=== PATIENT | male | born 1945 | race Caucasian/White ===

== ENCOUNTER 2018-02-15 13:47 | Emergency (ER) | payer MEDICARE ==
[~2018-02-15] VITALS: Ht 180.3 cm; Wt 118.2 kg
[~2018-02-15 13:47] MED LIST: BAYER CHEWABLE81 MG PO; CALAN SR240 MG PO; FLUTICASONE PRO16 GM NASAL; GLUCOPHAGE1000 MG PO; GLUCOSAMINE & C1 CAP PO; K-DUR20 MEQ PO; LIPITOR40 MG PO; PRINZIDE 20-251 TA1 PO
[2018-02-15 13:53] VITALS: Ht 180.3 cm; Wt 118.2 kg
[2018-02-15 14:38] LABS: BASOPHILS 0.7 % (0-2); EOSINOPHILS 1.2 % (0-7); HEMATOCRIT 41.9 % (42.0-54.0); HEMOGLOBIN 14.6 g/dL (13.5-17.5); IMMATURE GRANULOCYTES 0.2 % (0-5); LYMPHOCYTES 18.5 % (15-50); MCHC 34.8 g/dL (31.0-37.0); MCV 94.8 fL (80.0-100.0); MONOCYTES 9.1 % (2-11); NEUTROPHILS 70.3 % (40-80); PLATELET COUNT 165 10x3/uL (130-400); RBC 4.42 10x6/uL (4.20-6.10); RDW 12.8 % (11.5-14.5); WBC 5.9 10x3/uL (4.8-10.8)
[2018-02-15 14:46] LABS: APTT 28.6 SECONDS (22.8-39.4); INR 1.11 (0.85-1.17); PROTIME 13.9 SECONDS (11.6-15.0)
[2018-02-15 15:08] LABS: ALKALINE PHOSPHATASE 133 U/L (46-116); ALT (SGPT) 42 U/L (10-68); BILIRUBIN - TOTAL 1.19 mg/dL (0.2-1.3); CALC OSMOLALITY 280 mosm/kg (275-300); CALCIUM 9.3 mg/dL (8.5-10.1); CARBON DIOXIDE 27.3 mmol/L (21.0-32.0); CHLORIDE - SERUM 103 mmol/L (98-107); GLUCOSE 119 mg/dL (74-106); POTASSIUM - SERUM 3.9 mmol/L (3.5-5.1); PROTEIN - SERUM 7.3 g/dL (6.4-8.2); SODIUM 139 mmol/L (136-145); UREA NITROGEN 19 mg/dL (7-18); eGFR NON AFRICAN AMERICAN 78 mL/min (90-120)
[2018-02-15 15:30] VITALS: BP 155/88
== END 2018-02-15 15:31 | disposition home or self-care (01) ==
LOC: D.ER 13:47
PROVIDERS: Family Medicine
DX: S00.93XA Contusion of unspecified part of head, initial encounter (principal); W18.30XA Fall on same level, unspecified, initial encounter; Y93.89 Activity, other specified; Y92.481 Parking lot as the place of occurrence of the external cause; I10 Essential (primary) hypertension; E11.9 Type 2 diabetes mellitus without complications

== ENCOUNTER 2018-09-11 20:10 | Emergency (ER) | payer MEDICARE, OTHER ==
[2018-09-11 20:11] VITALS: BMI 36.3
[2018-09-11 20:53] LABS: BASOPHILS 0.6 % (0-2); EOSINOPHILS 2.2 % (0-7); HEMATOCRIT 39.3 % (42.0-54.0); HEMOGLOBIN 13.6 g/dL (13.5-17.5); IMMATURE GRANULOCYTES 0.2 % (0-5); LYMPHOCYTES 23.5 % (15-50); MCH 32.2 pg (26.0-34.0); MCHC 34.6 g/dL (31.0-37.0); MCV 93.1 fL (80.0-100.0); MONOCYTES 9.3 % (2-11); NEUTROPHILS 64.2 % (40-80); PLATELET COUNT 147 10x3/uL (130-400); RBC 4.22 10x6/uL (4.20-6.10); RDW 12.6 % (11.5-14.5); WBC 5.1 10x3/uL (4.8-10.8)
[2018-09-11 20:54] LABS: ALBUMIN 3.8 g/dL (3.4-5.0); ALKALINE PHOSPHATASE 88 U/L (46-116); ALT (SGPT) 43 U/L (10-68); BILIRUBIN - TOTAL 0.81 mg/dL (0.2-1.3); CALC OSMOLALITY 282 mosm/kg (275-300); CALCIUM 8.7 mg/dL (8.5-10.1); CARBON DIOXIDE 23.7 mmol/L (21.0-32.0); CHLORIDE - SERUM 102 mmol/L (98-107); CREATININE - SERUM 0.8 mg/dL (0.6-1.3); GLUCOSE 142 mg/dL (74-106); POTASSIUM - SERUM 3.7 mmol/L (3.5-5.1); PROTEIN - SERUM 6.8 g/dL (6.4-8.2); SODIUM 140 mmol/L (136-145); UREA NITROGEN 18 mg/dL (7-18); eGFR NON AFRICAN AMERICAN > 90 mL/min (90-120)
[2018-09-11 22:21] VITALS: BP 136/80
== END 2018-09-11 22:24 | disposition home or self-care (01) ==
LOC: D.ER 20:10
PROVIDERS: Family Medicine
DX: S01.01XA Laceration without foreign body of scalp, initial encounter (principal); W10.9XXA Fall (on) (from) unspecified stairs and steps, initial encounter; Y93.89 Activity, other specified; Y92.019 Unspecified place in single-family (private) house as the place of occurrence of the external cause

== ENCOUNTER 2018-10-07 20:32 | Inpatient (IN) | payer MEDICARE, OTHER ==
[~2018-10-07] VITALS: Ht 180.3 cm; Wt 126.6 kg
--- NOTE | 2018-10-07 21:12 | NUR ---
NURSE CLEANSED WOUND ON FORARM WITH MICRO CLEANSE AND CLEANED WOUND ON HEAD WITH PEROXIDE AND MICRO CLEANSE.
[2018-10-07 22:37] VITALS: BP 126/76
[2018-10-07 23:30] VITALS: BP 117/68
[2018-10-07 23:41] LABS: BASOPHILS 0.3 % (0-2); EOSINOPHILS 0.3 % (0-7); HEMATOCRIT 36.2 % (42.0-54.0); HEMOGLOBIN 12.5 g/dL (13.5-17.5); IMMATURE GRANULOCYTES 0.3 % (0-5); LYMPHOCYTES 6.8 % (15-50); MCH 32.5 pg (26.0-34.0); MCHC 34.5 g/dL (31.0-37.0); MEAN PLATELET VOLUME 10.2 fL (7.4-10.4); MONOCYTES 6.3 % (2-11); PLATELET COUNT 148 10x3/uL (130-400); RBC 3.85 10x6/uL (4.20-6.10); RDW 12.9 % (11.5-14.5); WBC 11.7 10x3/uL (4.8-10.8)
[2018-10-07 23:52] LABS: INR 1.18 (0.85-1.17); PROTIME 14.5 SECONDS (11.6-15.0)
[2018-10-07 23:56] LABS: ALBUMIN 3.9 g/dL (3.4-5.0); ALKALINE PHOSPHATASE 98 U/L (46-116); ALT (SGPT) 37 U/L (10-68); BILIRUBIN - TOTAL 1.02 mg/dL (0.2-1.3); CALC OSMOLALITY 281 mosm/kg (275-300); CALCIUM 8.6 mg/dL (8.5-10.1); CARBON DIOXIDE 18.6 mmol/L (21.0-32.0); CHLORIDE - SERUM 103 mmol/L (98-107); CREATININE - SERUM 0.9 mg/dL (0.6-1.3); GLUCOSE 143 mg/dL (74-106); MAGNESIUM - SERUM 1.6 mg/dL (1.8-2.4); POTASSIUM - SERUM 3.8 mmol/L (3.5-5.1); PROTEIN - SERUM 6.7 g/dL (6.4-8.2); SODIUM 139 mmol/L (136-145); UREA NITROGEN 18 mg/dL (7-18); eGFR NON AFRICAN AMERICAN 88 mL/min (90-120)
[2018-10-08] VITALS (35 sets, daily range): BP systolic 90–204; BP diastolic 63–130
--- NOTE | 2018-10-08 00:25 | NUR ---
QASIM METZGER () [phone] PALMA (SON) [phone]
--- NOTE | 2018-10-08 07:35 | NUR ---
PATIENT IV THERAPY REMOVED VIA PATIENT. TIP INTACT. REDRESSED. SLING REAPPLIED. SWEATING PROFUSELY WITH A SMALL BM. BED LINENS CHANGED. CL IN REACH POSSE ALARM ON
--- NOTE | 2018-10-08 07:50 | NUR ---
PATIENT REDRESSED. SLING REAPPLIED. PILLOW PUT BEHIND RIGHT SHOULDER. DR MEDINA PAGED. PATIENT TRYING TO PULL HIMSELF OUT OF BED WITH RAILS ON RIGHT SIDE OF BED. CL IN REACH. POSSE ALARM ON
[2018-10-08] MEDS ORDERED: ALEVE220 MG PO (09:50)
--- NOTE | 2018-10-08 13:50 | NUR ---
SPOKE WITH DR SONG. GO AHEAD AN INTUBATE DUE TO PT BEING NON COMPLIENT AND NEEDING A HEAD CT. DR BLANCAS CONSULTED. DR SONG STATED THAT IF THE PT HAS A ANURYSM, TO TRANSFER THE PT TO [facility].
--- NOTE | 2018-10-08 14:05 | NUR ---
PT TO UNIT FROM CTA. HR 95; 97% ON RA; 192/97; 100.1 TEMP.
--- NOTE | 2018-10-08 14:16 | NUR ---
DR SONG PAGESanket. UPDATED HIM ON THE PTS CONDITION. PT BEING UNCOOPERATIVE AND REACHING FOR LINES AND PULLING. ASKED DR SONG SINCE THE PT HAS ALREADY BEEN TO CT OF HIS HEAD AND IF HE STILL WANTS THE PT INTUBATED AND HE DR SONG STATED YES. DR YONNY PEREZ.
[2018-10-08 15:17] LABS: BASOPHILS 0.1 % (0-2); EOSINOPHILS 0 % (0-7); IMMATURE GRANULOCYTES 0.2 % (0-5); LYMPHOCYTES 3.6 % (15-50); MCH 32.4 pg (26.0-34.0); MCHC 35.3 g/dL (31.0-37.0); MEAN PLATELET VOLUME 10.2 fL (7.4-10.4); MONOCYTES 9.2 % (2-11); NEUTROPHILS 86.9 % (40-80); PLATELET COUNT 147 10x3/uL (130-400); WBC 9.3 10x3/uL (4.8-10.8)
--- NOTE | 2018-10-08 15:20 | NUR ---
PT INTUBATED BY DR BLANCAS. 7.5 TUBE USED; 24CM AT THE LIP; SETTINGS PER RT. OGT DROPPED. LANG CATH PLACED. PT IN SOFT WRIST RESTRAINTS. HR 101; 98%; 159/88.
[2018-10-08 15:40] LABS: ALBUMIN 3.8 g/dL (3.4-5.0); ALKALINE PHOSPHATASE 94 U/L (46-116); ALT (SGPT) 37 U/L (10-68); BILIRUBIN - TOTAL 1.79 mg/dL (0.2-1.3); CALCIUM 8.5 mg/dL (8.5-10.1); CARBON DIOXIDE 22.3 mmol/L (21.0-32.0); CHLORIDE - SERUM 104 mmol/L (98-107); POTASSIUM - SERUM 3.8 mmol/L (3.5-5.1); PROTEIN - SERUM 6.5 g/dL (6.4-8.2); SODIUM 139 mmol/L (136-145); UREA NITROGEN 20 mg/dL (7-18)
[2018-10-08 15:41] LABS: CALC OSMOLALITY 288 mosm/kg (275-300); CREATININE - SERUM 0.3 mg/dL (0.6-1.3); GLUCOSE 238 mg/dL (74-106); eGFR NON AFRICAN AMERICAN > 90 mL/min (90-120)
[2018-10-08 15:45] LABS: MCV 91.9 fL (80.0-100.0)
--- NOTE | 2018-10-08 15:49 | NUR ---
DURING INTUBATION, DR BLANCAS WANTED 4 VERSED, 200 FENTANYL AND [address] BLANCAS, 4 VERSED AND 150MCG OF FENTANYL GIVEN. NO SUCCINYCHOLINE GIVEN.
--- NOTE | 2018-10-08 16:30 | NUR ---
LASIX GIVEN THEN MANNITOL PER DR SONG'S ORDERS. NEW IV STARTED IN RIGHT HAND. 20 GAUGE. GOOD BLOOD RETURN. PT SEDATED. VSS. WILL CONTINUE TO MONITOR.
--- NOTE | 2018-10-08 17:40 | NUR ---
1ST DOSE OF MANNITOL IN. ROCEPHIN STARTED. WILL CONTINUE TO MONITOR.
--- NOTE | 2018-10-08 19:00 | NUR ---
REPORT RECEIVED, CARE ASSUMED. PT IS IN BED INTUBATED WITH SEDATION GOING. INITIAL ASSESSMENT COMPLETED, SEE FLOWSHEET FOR DETAILS. PT IS NOTED TO BE COUGHING/GAGGING ON TUBES AND MOVING AROUND IN THE BED. PROPOFOL INCREASED ACCORDING TO TITRATION ORDERS, SEE FLOWSHEET FOR DETAILS. PT WAS REPOSITIONED FOR COMFORT. ORAL CARE PERFORMED. NO SIGNS OF ACUTE DISTRESS NOTED AT THIS TIME. WILL CONTINUE TO MONITOR.
--- NOTE | 2018-10-08 21:00 | NUR ---
PT IS IN BED INTUBATED AND SEDATED. PT REPOSITIONED FOR COMFORT. ORAL CARE PERFORMED. FAMILY/FRIENDS AT BEDSIDE, QUESTIONS ANSWERED. NO SIGNS OF ACUTE DISTRESS. WILL CONTINUE TO MONITOR.
--- NOTE | 2018-10-08 23:00 | NUR ---
REASSESSMENT COMPLETED, SEE FLOWSHEET FOR DETAILS. PT IS IN BED INTUBATED AND SEDATED. PT REPOSITIONED FOR COMFORT. ORAL CARE PERFORMED. NO SIGNS OF ACUTE DISTRESS NOTED. WILL CONTINUE TO MONITOR.
[2018-10-09] VITALS (24 sets, daily range): BP systolic 104–166; BP diastolic 68–98; BMI 37.8
--- NOTE | 2018-10-09 01:00 | NUR ---
PT IS IN BED INTUBATED AND SEDATED. PT REPOSITIONED FOR COMFORT. ORAL CARE PERFORMED. NO ACUTE CHANGES NOTED AT THIS TIME. NO SIGNS OF ACUTE DISTRESS. WILL CONTINUE TO MONITOR.
--- NOTE | 2018-10-09 03:00 | NUR ---
REASSESSMENT COMPLETED, SEE FLOWSHEET FOR DETAILS. PT IS IN BED INTUBATED AND SEDATED. PT REPOSITIONED FOR COMFORT. ORAL CARE PERFORMED. NO SIGNS OF ACUTE DISTRESS NOTED AT THIS TIME. WILL CONTINUE TO MONITOR.
--- NOTE | 2018-10-09 05:00 | NUR ---
PT IS IN BED INTUBATED AND SEDATED. PT REPOSITIONED FOR COMFORT. ORAL CARE PERFORMED. MORNING LABS REVIEWED, ELECTROLYTE PROTOCOL FOLLOWED. NO SIGNS OF ACUTE DISTRESS. WILL CONTINUE TO MONITOR.
[2018-10-09 05:07] LABS: BASOPHILS 0.2 % (0-2); EOSINOPHILS 0 % (0-7); HEMATOCRIT 32.5 % (42.0-54.0); HEMOGLOBIN 11.7 g/dL (13.5-17.5); IMMATURE GRANULOCYTES 0.1 % (0-5); LYMPHOCYTES 8.3 % (15-50); MCH 34.5 pg (26.0-34.0); MCV 95.9 fL (80.0-100.0); MEAN PLATELET VOLUME 10.8 fL (7.4-10.4); MONOCYTES 10.6 % (2-11); NEUTROPHILS 80.8 % (40-80); PLATELET COUNT 143 10x3/uL (130-400); RBC 3.39 10x6/uL (4.20-6.10); RDW 13.5 % (11.5-14.5); WBC 8.8 10x3/uL (4.8-10.8)
[2018-10-09 05:10] LABS: APTT 26.8 SECONDS (22.8-39.4); INR 1.2 (0.85-1.17); PROTIME 14.7 SECONDS (11.6-15.0)
[2018-10-09 05:38] LABS: ALBUMIN 3.6 g/dL (3.4-5.0); BILIRUBIN - TOTAL 1.69 mg/dL (0.2-1.3); CALCIUM 8.2 mg/dL (8.5-10.1); PHOSPHOROUS 2.9 mg/dL (2.5-4.9); PROTEIN - SERUM 6.8 g/dL (6.4-8.2)
[2018-10-09 05:43] LABS: ANION GAP 11.8 mmol/L (8-16); CARBON DIOXIDE 30.2 mmol/L (21.0-32.0); CREATININE - SERUM 1.1 mg/dL (0.6-1.3); MAGNESIUM - SERUM 2.1 mg/dL (1.8-2.4)
--- NOTE | 2018-10-09 07:15 | NUR ---
REPORT RECEIVED. PT ON VENT. SETTINGS PER RT. 7.5 AND 24CM AT THE LIP. PT HAS IV IN LEFT FOREARM AND RIGHT HAND. NEW PROPOFOL AND TUBING HUNG. 2ND BAG OF POTASSIUM REPLACEMENT THERAPY HUNG. PT HAS LANG. HE IS IN SOFT WRIST RESTRAINTS BILATERALLY. RT IN WITH PT. SUCTIONED AND REPOSITIONED. HEAD TO TOE ASSESSMENT DONE. VSS. WILL CONTINUE TO MONITOR.
--- NOTE | 2018-10-09 09:34 | NUR ---
DR BLANCAS CALLED WANTING TO KNOW IF DR SONG WANTED A 2ND CTA OF THE HEAD AND WHETHER THE PT WOULD BE TRANSFERRED OUT OR NOT. SPOKE WITH [employer] IN SURGERY WITH DR SONG. DR SONG STATED TO GO ON WITH 2ND CTA AND TO CLARIFY WITH DR BLANCAS.
--- NOTE | 2018-10-09 09:42 | NUR ---
NO ANEURYSM PER CTA YESTERDAY (10/08). CLARIFIED WITH BOTH DR BLANCAS AND DR SONG. PT IS TO STAY HERE AT [facility] IN ICU. WILL CONTINUE TO MONITOR. PICC LINE ORDERED. WAS TOLD VASCULAR ACCESS NURSE IS OUT UNTIL NEXT Friday10/13/18.
--- NOTE | 2018-10-09 10:28 | NUR ---
HAVE CALLED PHARMACY ASKING ABOUT BANANA BAG. THEY STATED THAT IT WAS ON A DIFFERENT FLOOR AND THAT THEY WOULD BRING IT WHEN THEY HAD A CHANCE.
--- NOTE | 2018-10-09 11:45 | NUR ---
PROPOFOL DECREASED PER DR BLANCAS'S REQUEST. PUPILS 2MM. SLUGGISH.
--- NOTE | 2018-10-09 12:30 | NUR ---
SEDATION VACATION STARTED. VSS.
[2018-10-09 12:35] LABS: BASOPHILS 0.1 % (0-2); EOSINOPHILS 0.1 % (0-7); HEMATOCRIT 36.1 % (42.0-54.0); HEMOGLOBIN 12.5 g/dL (13.5-17.5); IMMATURE GRANULOCYTES 0.2 % (0-5); LYMPHOCYTES 4.5 % (15-50); MCH 32.7 pg (26.0-34.0); MCHC 34.6 g/dL (31.0-37.0); MCV 94.5 fL (80.0-100.0); MEAN PLATELET VOLUME 10.5 fL (7.4-10.4); MONOCYTES 9.2 % (2-11); NEUTROPHILS 85.9 % (40-80); PLATELET COUNT 135 10x3/uL (130-400); RBC 3.82 10x6/uL (4.20-6.10); RDW 13.4 % (11.5-14.5); WBC 10.1 10x3/uL (4.8-10.8)
--- NOTE | 2018-10-09 13:00 | NUR ---
DR SONG ROUNDED ON PT. WAS ABLE TO GET RESPONSE OUT OF PT. NO NEW ORDERS AT THIS TIME. VSS. WILL CONTINUE TO MONITOR.
--- NOTE | 2018-10-09 14:58 | NUR ---
NEW 20 GAUGE IV STARTED TO LEFT FOREARM. POTASSIUM RECHECKED AND 3.4. POTASSIUM REPLACEMENT 10 MEQ X4 STARTED. PT WAS AGITATED AND TRYING TO FIGHT ME STARTING A NEW IV. STARTED PROPOFOL BACK UP. PT WOULDN'T FOLLOW COMMANDS BUT DID TRY TO FIGHT HIS RESTRAINTS. EYES OPENED WHEN STARTING IV. WILL CONTINUE TO MONITOR.
--- NOTE | 2018-10-09 15:04 | NUR ---
TEMP 99.8 ORALLY. WILL CONTINUE TO MONITOR.
--- NOTE | 2018-10-09 16:30 | NUR ---
IV IN RIGHT HAND INFILTRATED. REMOVED. VSS. POTASSIUM STILL BEING REPLACED. BANANA BAG INFUSING. MANNITOL INFUSING. PROPOFOL AT 30MCG INFUSING. WILL CONTINUE TO MONITOR.
--- NOTE | 2018-10-09 17:30 | NUR ---
TUBE FEEDING INITIATED. 20ML/HR PULMOCARE WITH 20ML/HR FLUSH.
--- NOTE | 2018-10-09 17:57 | MORECARE ---
CASE MANAGEMENT DISCHARGE SUMMARY PATIENT: DAYTON METZGER UNIT: [id number] ADM DATE: 10/08/18 AGE: 73 : [birth year] SEX: M ROOM/BED: D.2312 AUTHOR: SHAKEEL SAUCEDA PHYSICIAN: REFERRING PHYSICIAN: FRANCIE MDEINA MD DATE OF SERVICE: 10/09/18 Discharge Plan Patient Name: DAYTON METZGER [facility] [facility] 1945 Planned Disposition: Anticipated Discharge Date: Discharge Date: Expected LOS: Initial Reviewer: [email or web address] Initial Review Date: 10/08/2018 Generated: 10/09/18 6:57 pm DCP- Discharge Planning Updated by [email or web address]: Ladi Harden on 10/09/18 4:[address] CM attempted to visit with patient regarding discharge planning/ needs. Patient currently on vent no family available. CM will continue to follow and assist as needed with discharge planning / needs Patient Name: DAYTON METZGER Page [id number] at 1757 All edits/amendments must be made on the electronic document DICTATION DATE: 10/09/181755 REHABILITATION TEACHER: LEAH 10/09/181755 RPT#: [id number] DC DATE: STATUS: ADM IN [facility] [address] [place] [address] END OF REPORT
[2018-10-10] VITALS (23 sets, daily range): BP systolic 121–172; BP diastolic 74–118
--- NOTE | 2018-10-10 02:54 | NUR ---
OG TUBE DISCONNECTED FROM PATIENT AT THIS TIME
[2018-10-10 03:52] LABS: ALBUMIN 3.7 g/dL (3.4-5.0); ANION GAP 12.4 mmol/L (8-16); BILIRUBIN - TOTAL 1.73 mg/dL (0.2-1.3); CARBON DIOXIDE 30.7 mmol/L (21.0-32.0); CREATININE - SERUM 1.1 mg/dL (0.6-1.3); POTASSIUM - SERUM 3.1 mmol/L (3.5-5.1); PROTEIN - SERUM 7.3 g/dL (6.4-8.2)
[2018-10-10 03:59] LABS: MAGNESIUM - SERUM 2.7 mg/dL (1.8-2.4); PHOSPHOROUS 4.4 mg/dL (2.5-4.9)
--- NOTE | 2018-10-10 07:00 | NUR ---
REC'ED REPORT FROM OUT GOING RN - OUT GOING RN PLACED OG TUBE - AUSCULTATED CORRECT PLACEMENT - CPOC
--- NOTE | 2018-10-10 07:17 | HP ---
PATIENT: DAYTON METZGER MEDICAL RECORD: [id number] ACCOUNT: [id number] LOCATION:[facility]2312 : [birth year] ADMISSION DATE: 10/08/18 PCP: DAYTON BRANDT MD HISTORY AND PHYSICAL EXAMINATION REASON FOR ADMISSION: Fall with intoxication. HISTORY OF PRESENT ILLNESS: The patient is a 73-year-old male, type 2 diabetic, who apparently has a history of alcohol excess. His states that he tripped and fell down 4 steps, hitting his head on the freezer. He was brought by EMS to the ED. His states that he is on no blood thinners, just aspirin. He has been confused since the fall but was inebriated with the alcohol level over 50. In the ED, he was cooperative but somnolent, denied pain. PAST MEDICAL HISTORY: AODM, exogenous obesity, hyperlipidemia, essential hypertension, osteoarthritis, rosacea, psoriasis, chronic back pain, cervical arthritis, spinal stenosis, history of hematuria with negative workup in 2014 at [facility]. Depression. PAST SURGICAL HISTORY: Tonsillectomy, vasectomy, ganglion cyst removed from his right wrist, quadriceps tear repair in 2001, left patellar tendon rupture with repair in 1997, lumbar laminectomy in 2009, lumbar fusion in 2013. IMMUNIZATIONS: He has had Prevnar, Pneumovax, and flu vaccine seasonally. FAMILY HISTORY: Father is , had arthritis, CAD, dementia. Mother had diabetes and hypertension. CURRENT MEDICATIONS: Potassium 20 mEq a day, Flonase nasal spray 2 sprays each nostril daily, verapamil ER 240 a day, metformin 1000 mg b.i.d., paroxetine 10 mg b.i.d. ALLERGIES: None known. REVIEW OF SYSTEMS: Currently is unobtainable due to the patient's intoxication. There was no reported seizure pre or post incident by family members. PHYSICAL EXAMINATION: GENERAL: The patient opens his eyes, does not follow commands currently. HEENT: Normocephalic. Pupils are equal, reactive but somewhat pinpoint. He has some bruising over his right orbit. Oropharynx dry mucous membranes. NECK: Supple. CHEST: Clear without wheeze or rales. HEART: Regular rate and rhythm. He has bruising over his right distal clavicle and anterior shoulder. Does not appear painful to touch. ABDOMEN: Obese, soft, nontender. No organomegaly or guarding. GENITOURINARY: Unremarkable. EXTREMITIES: He has some bruising over his right knee. Healed surgical scar over his left knee and he appears to have had a left total knee replacement in the past. NEUROLOGICAL: The patient will open his eyes to commands but will not follow commands, otherwise. He is noncommunicative currently. Cranial nerves II-XII are grossly intact. Moving all extremities without difficulty. Not able to HISTORY AND PHYSICAL [id number] DAYTON METZGER stand at this time. LABORATORY DATA: His white count is 11,700, hemoglobin of 12.5, hematocrit of 36.2 with normal diff. BMP is normal except for anion gap of 21.2, low carbon dioxide of 18.6, glucose of 143, magnesium low at 1.6. Ammonia is 19. Urine drug screen shows alcohol level of 52.[address] scan of his brain is currently pending as the patient was uncooperative. Head CT, a month ago showing left parietal scalp hematoma, air-fluid level in the right maxillary sinus. ASSESSMENT: 1. Intoxication with fall and head injury. 2. Right clavicular fracture distally. 3. Adult-onset diabetes mellitus. 4. Hypertension. 5. Depression. 6. Hyperlipidemia. 7. Psoriasis. PLAN: With the patient's altered mental status, he will have neuro checks, placed on banana bag due to alcohol excess, obtain CT scan once the patient is more cooperative. Neurology consult if indicated. Orthopedics has been consulted concerning his distal right clavicular fracture. TRANSINT:[id number] Voice Confirmation ID: [id number] DOCUMENT ID: [id number] FRANCIE MEDINA MD at 0717 CC: [id number] DICTATION DATE: 10/08/18 0605 LOG TURNER: 10/08/18 0628 ADM IN [facility] [address] [place] [address]
--- NOTE | 2018-10-10 07:30 | NUR ---
DR. MEDINA AT BEDSIDE - ORDERS REC'ED FOR TUBE FEEDING - SEE MD ORDERS - CPOC
--- NOTE | 2018-10-10 08:00 | NUR ---
ASSESSMENT COMPLETE - VSS - MEDICATIONS GIVEN - SEE MAR - CPOC
--- NOTE | 2018-10-10 09:00 | NUR ---
DR. MCQUEEN AT BEDSIDE FOR ASSESSMENT - REVIEWED PLAN OF CARE WITH MD Cailin SANDOVAL - CPOC
--- NOTE | 2018-10-10 10:00 | NUR ---
SPOUSE AT [facility] - PASSWORD: "[email or web address]" - ANSWERED ALL QUESITONS TO SPOUSE'S SATISFACTION - CPOC
--- NOTE | 2018-10-10 10:34 | NUR ---
MEDICATIONS GIVEN - SEE MAR
--- NOTE | 2018-10-10 10:43 | NUR ---
FAMILY AT BEDSIDE - ANSWERED ALL QUESITONS TO FAMILY'S SATISFACTION - CPOC
--- NOTE | 2018-10-10 11:11 | NUR ---
Nutrition Consult: started TF of Glucerna 1.0; consult received for goal rate. Spoke with nursing; pt is currently on Diprivan @ 15.1 ml/hr providing 399 kcal/d. Will put order in to increase TF 10 ml every 6-8 hours as tolerated to goal rate of 65 ml/hr with H2O flushes 10 ml/hr. Goal rate will provide 1560 kcal (other kcal source Diprivan), 64 g protein and 1313 ml free H2O per day. Goal rate is adequate to meet est nutritional needs. RD following.
--- NOTE | 2018-10-10 16:00 | NUR ---
SPOUSE AT BEDSIDE - ANSWERED ALL QUESITONS TO FAMILY SATISIFACTION - ORAL CARE DONE - CPOC
--- NOTE | 2018-10-10 16:41 | NUR ---
ICE PACKS PLACED ON PATIENT TO LOWER TEMP FROM 101.2 (ORAL) CPOC
--- NOTE | 2018-10-10 17:30 | NUR ---
TEMP RECHECKED DOWN TO 100.0 - REMOVED ICE PACKS - SPOUSE IN ROOM - CPOC
--- NOTE | 2018-10-10 17:44 | NUR ---
CLEAN CATCH URINE TAKEN TO LAB FOR TESTING
[2018-10-10 17:52] LABS: APPEARANCE CLEAR (CLEAR); BILIRUBIN NEGATIVE (NEGATIVE); COLOR YELLOW (YELLOW); GLUCOSE NEGATIVE (NEGATIVE); KETONE NEGATIVE (NEGATIVE); NITRITE NEGATIVE (NEGATIVE); PROTEIN NEGATIVE (NEGATIVE); SPECIFIC GRAVITY 1.015 (1.005-1.020); UROBILINOGEN NORMAL (NORMAL)
[2018-10-10 17:53] LABS: RED CELLS - URINE RARE /hpf (0-5); WHITE CELLS - URINE NSEEN /hpf (0-5)
[2018-10-10 17:56] LABS: UDS - AMPHET NEGATIVE QUAL (NEGATIVE); UDS - BARB NEGATIVE QUAL (NEGATIVE); UDS - BENZO NEGATIVE QUAL (NEGATIVE); UDS - COCAINE NEGATIVE QUAL (NEGATIVE); UDS - OPIATE NEGATIVE QUAL (NEGATIVE); UDS - PCP NEGATIVE QUAL (NEGATIVE); UDS - THC NEGATIVE QUAL (NEGATIVE)
--- NOTE | 2018-10-10 19:38 | NUR ---
RECEIVED PATIENT CARE - PATIENT RESTING COMFORTABLY ATTENTION FOCUSED ON TV, SHIFT ASSESSMENT COMPLETED SEE FLOW SHEET. VSS CPOC
--- NOTE | 2018-10-10 19:39 | NUR ---
RECEIVED CARE OF PATIENT, PATIENT INTUBATED NOT SEDATED, OPENS EYES TO SPEECH. SHIFT ASSESSMENT COMPLETED SEE FLOWSHEET, VSS CPOC
[2018-10-11] VITALS (25 sets, daily range): BP systolic 93–173; BP diastolic 58–107
[2018-10-11 03:55] LABS: BASOPHILS 0.2 % (0-2); EOSINOPHILS 0.5 % (0-7); HEMATOCRIT 39.6 % (42.0-54.0); HEMOGLOBIN 13.1 g/dL (13.5-17.5); IMMATURE GRANULOCYTES 0.2 % (0-5); LYMPHOCYTES 6.6 % (15-50); MCHC 33.1 g/dL (31.0-37.0); MEAN PLATELET VOLUME 10.4 fL (7.4-10.4); MONOCYTES 8.2 % (2-11); NEUTROPHILS 84.3 % (40-80); RDW 13.5 % (11.5-14.5)
[2018-10-11 03:57] LABS: MCV 96.6 fL (80.0-100.0); PLATELET COUNT 172 10x3/uL (130-400); WBC 12.8 10x3/uL (4.8-10.8)
[2018-10-11 04:04] LABS: CALCIUM 9.1 mg/dL (8.5-10.1); CARBON DIOXIDE 31.4 mmol/L (21.0-32.0); CREATININE - SERUM 1.1 mg/dL (0.6-1.3); MAGNESIUM - SERUM 3.3 mg/dL (1.8-2.4); POTASSIUM - SERUM 3.4 mmol/L (3.5-5.1)
--- NOTE | 2018-10-11 06:05 | NUR ---
CALLED DR SONG REGARDING SEDATION STATUS OF VENTILATED PATIENT
--- NOTE | 2018-10-11 06:06 | NUR ---
DR SONG SAID IT IS OK TO KEEP PATIENT ON MINIMAL SEDATION (PROPOFOL) FOR COMFORT AND VENTILATOR COMPLIANCE NEEDED, PAUSE Q1 HR TO ASSESS NEURO STATUS PER FLOWSHEET
--- NOTE | 2018-10-11 08:51 | NUR ---
WILL GIVE MVI WHEN ARRIVES FROM Rx
--- NOTE | 2018-10-11 10:07 | NUR ---
CRYSTAL IN MANITOL POKED A HOLE IN THE BAG, CONTACTED Rx, THEY ARE TO BRING A REPLACEMENT DOSE, WILL GIVE WHEN ARRIVES FROM Rx
--- NOTE | 2018-10-11 11:00 | NUR ---
NO CHANGES NOTED
--- NOTE | 2018-10-11 15:00 | NUR ---
NO CHANGES NOTED
--- NOTE | 2018-10-11 19:14 | NUR ---
RECEIVED PATIENT CARE - PATIENT HEART RATE SPIKE 126 SINUS TACH DURING REPORT, PRN TYLENOL ADMINISTERED SEE EMAR - TEMP 103.2 PACE CALLED AT THIS TIME
--- NOTE | 2018-10-11 19:25 | NUR ---
shift assessment completed see flowsheet, patient has temp and tachypnia - titrating diprovan as needed for ventilatior compliance see iv drip flowsheet , pt not responding to commands, opens eyes spontaneously does not follow commands. patient room air decreased and patient uncovered. medications administered - see flowsheet for full assessment
--- NOTE | 2018-10-11 19:38 | NUR ---
dr mancera called at this time and updated on patient status - new orders received - he also asked that i call dr ojeda to update also
--- NOTE | 2018-10-11 19:40 | NUR ---
DR. SONG SAID FENTANYL CAN BE RESTARTED ORDERED BY RICHAR IF NEEDED - RICHAR ORDER OF 25MCG/HR CONTINUOUS NO TITRATION
--- NOTE | 2018-10-11 19:51 | NUR ---
RICHAR UPDATED NEW ORDERS RECEIVED
--- NOTE | 2018-10-11 20:22 | NUR ---
FAMILY AT BEDSIDE - UPDATE GIVEN ALL QUESTIONS ANSWERED - HR 130 - RR STILL INCREASED LAB AT BEDSIDE FOR BC X2 CPOC
--- NOTE | 2018-10-11 20:40 | NUR ---
FENTANYL DRIP NOT STARTED DUE TO RSS AT THIS TIME, DIPROVAN BEING TITRATED TOLERATED - SINUS TACH NOTED - TEMP STILL ELEVATED WILL CONTINUE TO CLOSELY MONITOR CPOC
--- NOTE | 2018-10-11 21:45 | NUR ---
HS MEDICATIONS GIVEN AT THIS TIME, RESPIRATIONS RANGING FROM 35-38 - TEMP DECREASE NOW AT 102.7 WILL CONTINUE TO MONITOR CLOSELY
[2018-10-12] VITALS (24 sets, daily range): BP systolic 95–143; BP diastolic 55–92
--- NOTE | 2018-10-12 05:45 | NUR ---
CHG BATH AND FULL LINEN CHANGED COMPLETED AT THIS TIME INCLUDING LANG CARE. PATIENT DID NOT TOLERATE WELL
--- NOTE | 2018-10-12 07:30 | NUR ---
RECEIVED REPORT FROM GARRICK RENDON. PT RESTING IN BED SEDATED ON VENT. SLIGHTLY TACHYCARDIC WITH NORMAL SINUS RHYTHM. BP STABLE. TEMP 101.4. WILL ICE PATIENT DOWN. LEFT FOREARM PIV. WILL CHECK ORDERS AND CONTINUE TO MONITOR
[2018-10-12 07:57] LABS: BASOPHILS 0.1 % (0-2); EOSINOPHILS 0 % (0-7); HEMATOCRIT 41.9 % (42.0-54.0); HEMOGLOBIN 13.9 g/dL (13.5-17.5); IMMATURE GRANULOCYTES 0.4 % (0-5); LYMPHOCYTES 3.4 % (15-50); MCH 32.6 pg (26.0-34.0); MCHC 33.2 g/dL (31.0-37.0); MCV 98.4 fL (80.0-100.0); MEAN PLATELET VOLUME 10.6 fL (7.4-10.4); MONOCYTES 9.8 % (2-11); NEUTROPHILS 86.3 % (40-80); PLATELET COUNT 193 10x3/uL (130-400); RBC 4.26 10x6/uL (4.20-6.10); RDW 13.7 % (11.5-14.5)
[2018-10-12 08:18] LABS: CALCIUM 9.8 mg/dL (8.5-10.1); CARBON DIOXIDE 28.4 mmol/L (21.0-32.0); POTASSIUM - SERUM 3.4 mmol/L (3.5-5.1)
[2018-10-12 08:20] LABS: CREATININE - SERUM 2.6 mg/dL (0.6-1.3)
--- NOTE | 2018-10-12 09:59 | NUR ---
NUTRITION F/U CHART REVIEWED, SPOKE WITH NURSING. GLUCERNA 1.0 @ 20 CC/HR WITH GOAL RATE 65 CC/HR. NURSING TO ADVANCE TUBE FEEDS TOLERATED TO GOAL RATE. WILL CONTINUE TO MONITOR. RD FOLLOWING
--- NOTE | 2018-10-12 10:58 | NUR ---
INITIATED FENTANYL INFUSION AT 25MCG/HR PER DR. SONG ORDERS. DC'D RANDY. PT DOES NOT FOLLOW COMMANDS BUT DID LOCATE ME WITH EYES AND MAKES GRIMACING FACE.
--- NOTE | 2018-10-12 12:36 | NUR ---
OBTAINED CONSENT FOR BRONCHOSCOPY FROM PATIENTS .
--- NOTE | 2018-10-12 13:08 | NUR ---
BRONCHOSCOPY COMPLETED. VSS.
--- NOTE | 2018-10-12 14:01 | NUR ---
CALLED DR. SONG TO GIVE UPDATE. ORDERS FOR HEAD CT AND DC MANNITOL
--- NOTE | 2018-10-12 15:36 | NUR ---
RETURNED FROM CT OF HEAD AT THIS TIME. VS REMAINED STABLE.
--- NOTE | 2018-10-12 16:05 | MORECARE ---
CASE MANAGEMENT DISCHARGE SUMMARY PATIENT: DAYTON METZGER UNIT: [id number] ADM DATE: 10/08/18 AGE: 73 : [birth year] SEX: M ROOM/BED: D.2312 AUTHOR: SHAKEEL SAUCEDA PHYSICIAN: REFERRING PHYSICIAN: FRANCIE MEDINA MD DATE OF SERVICE: 10/12/18 Discharge Plan Patient Name: DAYTON METZGER [facility] [facility] 1945 Planned Disposition: Anticipated Discharge Date: Discharge Date: Expected LOS: Initial Reviewer: [email or web address] Initial Review Date: 10/08/2018 Generated: 10/12/18 5:05 pm DCP- Discharge Planning Updated by [email or web address]: Ladi Harden on 10/09/18 4:[address] CM attempted to visit with patient regarding discharge planning/ needs. Patient currently on vent no family available. CM will continue to follow and assist as needed with discharge planning / needs DCPIA - Discharge Planning Initial Assessment Updated by [email or web address]: Jazmyn Adam on 10/12/18 4:04 pm * Is the patient Alert and Oriented? No * PCP KARLY * Preadmission Environment Home Alone * ADLs Independent * List name and contact numbers for known caregivers / representatives who currently or will assist patient after discharge: QASIM, MARIA GUADALUPE, Last DP export: 10/09/18 4:57 pm Patient Name: DAYTON METZGER Page [phone] at 1605 All edits/amendments must be made on the electronic document DICTATION DATE: 10/12/18 1604 [employer]: LEAH 10/12/18 1604 RPT#: [id number] DC DATE: STATUS: ADM IN [facility] [address] [place] [address] END OF REPORT
--- NOTE | 2018-10-12 16:14 | MORECARE ---
CASE MANAGEMENT DISCHARGE SUMMARY PATIENT: DAYTON METZGER UNIT: [id number] ADM DATE: 10/08/18 AGE: 73 : 47 SEX: M ROOM/BED: D.2312 AUTHOR: SHAKEEL SAUCEDA PHYSICIAN: REFERRING PHYSICIAN: FRANCIE MEDINA MD DATE OF SERVICE: 10/12/18 Discharge Plan Patient Name: DAYTON METZGER Facility: [facility]:[place] : 1945 Planned Disposition: Anticipated Discharge Date: Discharge Date: Expected LOS: Initial Reviewer: [email or web address] Initial Review Date: 10/08/2018 Generated: 10/12/18 5:13 pm Comments DCP- Discharge Planning Updated by [email or web address]: Jazmynchinedu Adam on 10/12/18 3:[address] Patient Name: DAYTON METZGER Admission Status: ER Accout number: [id number] Admission Date: 10-08-2018 : 1945 Admission Diagnosis:TRAUM SUBRAC HEM W/O LOSS OF CONSCIOUSNESS, INIT Attending: FRANCIE MEDINA Current LOS: 4 Anticipated DC Date: Planned Disposition: Primary Insurance: MEDICARE A & B Discharge Planning Comments: PATIENT IS INTUBATED AT THIS TIME, NO FAMILY HERE. RN STATES HE FELL AT HOME AND HAS A SUBDURAL HEMATOMA. STATES HERE EARLIER. I WILL TRY TO CATCH HER NEXT TIME SHE IS HERE. CM TO FOLLOW AND ASSIST NEEDED. Dining Car Hop: Jazmyn Adam DCP- Discharge Planning Updated by [email or web address]: Ladi Harden on 10/09/18 4:[address] CM attempted to visit with patient regarding discharge planning/ needs. Patient currently on vent no family available. CM will continue to follow and assist as needed with discharge planning / needs DCPIA - Discharge Planning Initial Assessment Updated by [id number]: Jazmyn Adam on 10/12/18 4:04 pm * Is the patient Alert and Oriented? No * PCP KARLY * Preadmission Environment Home Alone * ADLs Independent * List name and contact numbers for known caregivers / representatives who currently or will assist patient after discharge: QASIM, SPOUSE, Last DP export: 10/12/18 3:05 pm Patient Name: DAYTON METZGER Page [phone] at 1614 All edits/amendments must be made on the electronic document DICTATION DATE: 10/12/181612 FAMILY ENGAGEMENT SPECIALIST: LEAH 10/12/181612 RPT#: [id number] DC DATE: STATUS: ADM IN [facility] [address] [place] [address] END OF REPORT
--- NOTE | 2018-10-12 18:00 | NUR ---
SPOKE TO DR. SONG OVER PHONE. GAVE UPDATE ON REPORT FROM CT OF HEAD. NO ORDERS GIVEN. REPLACING POTASSIUM PER PROTOCOL
--- NOTE | 2018-10-12 19:19 | NUR ---
BEDSIDE SHIFT REPORT GIVEN BY DEPARTING RN. PT LAYING IN BED WITH EYES CLOSED. PUPILS EQUAL, ROUND, REACTIVE, AND PINPOINT. GRIMACES WITH PAIN. RIGHT SIDED WEAKNESS NOTED. FOLLOWS COMMANDS. SLIGHT MOVEMENT OF BILATERAL FEET WHEN PROMPTED. MULTIPLE BRUISES NOTED THROUGHOUT PT BODY. VENTILATED, RESTRAINED, AND SEDATED. LEFT FA PIV X2. PATENT AND INFUSING MD ORDERED MEDS. F/C NOTED. SCD'S ON. VSS. SAFETY MEASURES IN PLACE. CBIR.
--- NOTE | 2018-10-12 21:12 | NUR ---
HS MEDS GIVEN. 0 RESIDUAL NOTED IN G TUBE. TOLERATED WELL.
[2018-10-12 21:28] LABS: MACROPHAGES BF 11 %; NEUT - BF 87 %
--- NOTE | 2018-10-12 23:16 | NUR ---
REASSESSMENT COMPLETE. VSS. NO CHANGES NOTED IN PT CONDITION. ORAL CARE PROVIDED. REPOSITIONED FOR COMFORT. SAFETY MEASURES IN PLACE. CBIR.
[2018-10-13] VITALS (24 sets, daily range): BP systolic 90–114; BP diastolic 53–76; Ht 180.3 cm; Wt 126.6 kg
--- NOTE | 2018-10-13 00:22 | NUR ---
ORAL CARE PROVIDED. REPOSITIONED FOR COMFORT.
--- NOTE | 2018-10-13 02:42 | NUR ---
COMPLETE BED BATH GIVEN USING CHG SOLUTION. LINENS CHANGED. VSS. TOLERATED WELL. ORAL CARE PROVIDED. BM SMEAR NOTED. REPOSITIONED. SAFETY MEASURES IN PLACE. CBIR.
[2018-10-13 05:21] LABS: BASOPHILS 0.2 % (0-2); EOSINOPHILS 0.5 % (0-7); HEMATOCRIT 38.4 % (42.0-54.0); HEMOGLOBIN 12.2 g/dL (13.5-17.5); IMMATURE GRANULOCYTES 0.4 % (0-5); MCH 32.2 pg (26.0-34.0); MCHC 31.8 g/dL (31.0-37.0); MEAN PLATELET VOLUME 10.9 fL (7.4-10.4); MONOCYTES 8.2 % (2-11); NEUTROPHILS 84.7 % (40-80); PLATELET COUNT 164 10x3/uL (130-400); RBC 3.79 10x6/uL (4.20-6.10); WBC 12.6 10x3/uL (4.8-10.8)
[2018-10-13 05:30] LABS: MCV 101.3 fL (80.0-100.0)
[2018-10-13 05:32] LABS: ANION GAP 13.8 mmol/L (8-16); CALCIUM 9.3 mg/dL (8.5-10.1)
[2018-10-13 05:35] LABS: CREATININE - SERUM 3.8 mg/dL (0.6-1.3); POTASSIUM - SERUM 3.8 mmol/L (3.5-5.1)
--- NOTE | 2018-10-13 07:15 | NUR ---
REPORT RECEIVED. PT ON VENT. SETTINGS PER RT. PT HAS RIGHT CLAVICLE FRACTURE, RIGHT SUBDURAL HEMATOMA, AND RIGHT SUBARACHNOID HEMORRHAGE. HE HAS RIGHT SIDED WEAKNESS. PT HAS OGT AND HAS PULMOCARE GOING AT 40ML/HR. GOAL IS 60ML/HR. PT HAS TO LEFT FOREARM IVS AND NEEDS A PICC LINE PLACED. VASCULAR ACCESS NURSE HAS BEEN OUT SINCE ORDER WAS GIVEN AND RETURNS TODAY. WILL FOLLOW UP ON GETTING PICC PLACED. PT IS ON FENTANYL, HAS BEEN RECEIVING POTASSIUM, ON NUMEROUS ANTIBIOTICS, AND WAS ON MANNITOL. PT HAS LANG. HOOKED UP TO MONITORS. VSS. WILL CONTINUE TO MONITOR.
--- NOTE | 2018-10-13 08:27 | NUR ---
SPOKE WITH PHARMACY AND DR MCQUEEN ABOUT DOSING VANCOMYCIN D/T HIGH CREATININE. DR MCQUEEN STATED PHARMACY TO DOSE BASED ON GFR AND TO CONSULT NEPHROLOGY.
--- NOTE | 2018-10-13 09:30 | NUR ---
DR SONG IN DISCUSSING PT STATUS AND PROGNOSIS WITH PT'S . NO NEW ORDERS AT THIS TIME. NEPHROLOGY HAS BEEN CONSULTED, AND DANIEL QUINONES SPOKE WITH PT'S . D/C'D SOME MEDICATIONS AND ADDED ORDERS. ORAL CARE PERFORMED ON PT. OGT ADVANCED. WILL CONTINUE TO MONITOR.
--- NOTE | 2018-10-13 11:15 | NUR ---
VSS. PT REPOSITIONED. SUCTIONED. WILL CONTINUE TO MONITOR.
--- NOTE | 2018-10-13 13:00 | NUR ---
OGT CHANGED OUT D/T 1ST TUBE BEING CLOGGED UP. AIR AUSCULTATED IN STOMACH. TUBE FEEDING HOOKED UP (TUBING AND FEED CHANGED OUT). WASHED PT'S FACE AND CHEST AND ARMS WITH CHG. ORAL CARE PERFORMED.
--- NOTE | 2018-10-13 15:00 | NUR ---
FAMILY AT BEDSIDE. UPDATED. VSS. PT SUCTIONED AND REPOSITIONED. WILL CONTINUE TO MONITOR.
--- NOTE | 2018-10-13 16:30 | NUR ---
I&O'S DONE. 1400 OUT LANG. KANGEROO PUMP CLEARED. PT SUCTIONED. VSS. WILL CONTINUE TO MONITOR.
--- NOTE | 2018-10-13 17:30 | NUR ---
FSBS 200. INSULIN GIVEN PER ORDER. VSS.
--- NOTE | 2018-10-13 19:23 | NUR ---
BEDSIDE SHIFT REPORT GIVEN BY DEPARTING RN. PT LAYING IN BED WITH EYES CLOSED SHOWING NO SS OF DISTRESS. VSS. UNRESPONSIVE AT THIS TIME. VENTILATED WITH NO SEDATION. PERRLA. MULTIPLE BRUISES NOTED. LEFT FA PIV PATENT. F/C NOTED AND DRAINING CONCENTRATED URINE TO GRAVITY. ORAL CARE PROVIDED. REPOSITIONED. ASSESSMENT COMPLETE. SEE FLOWSHEET FOR DETAILS. SAFETY MEASURES IN PLACE. [facility].
--- NOTE | 2018-10-13 19:41 | NUR ---
ORAL TEMP 103.0. ICE PACKS PLACED WITH ICE WATER LAVAGED IN OG TUBE. BLANKETS REMOVED. FAN POSITIONED. REMAINS UNRESPONSIVE AT THIS TIME.
--- NOTE | 2018-10-13 20:10 | NUR ---
TYLENOL SUPPOSITORY ADMINISTERED.
--- NOTE | 2018-10-13 20:36 | NUR ---
ORAL TEMP 101.9
--- NOTE | 2018-10-13 20:46 | NUR ---
DR. LALA ON PHONE. UPDATED ON PT CONDITION. NO NEW ORDERS
--- NOTE | 2018-10-13 21:00 | NUR ---
ORAL TEMP 100.8
--- NOTE | 2018-10-13 21:04 | NUR ---
PT REMAINS UNRESPONSIVE. PUPILS PINPOINT, REACTIVE TO LIGHT. GAG REFLEX IN TACT. RESTRAINTS TAKEN OFF AT THIS TIME. WILL CONTINUE TO MONITOR.
--- NOTE | 2018-10-13 21:10 | NUR ---
DR. MCQUEEN ON PHONE FOR PT UPDATE. ALL QUESTIONS ANSWERED. NO NEW ORDERS AT THIS TIME.
--- NOTE | 2018-10-13 23:32 | NUR ---
REASSESSMENT COMPLETE. NO NEW CHANGES IN PT CONDITION. ORAL TEMP 99.3. PT REMAINS UNRESPONSIVE. VSS. SAFETY MEASURES IN PLACE. ORAL CARE PROVIDED. REPOSITIONED FOR COMFORT.
[2018-10-14] VITALS (24 sets, daily range): BP systolic 83–126; BP diastolic 58–82
--- NOTE | 2018-10-14 01:12 | NUR ---
NEURO CHECK: EYES OPENING SPONTANEOUSLY. GRIMACES WITH TACTILE STIMULATION. DOES NOT FOLLOW COMMANDS. FOLLOWS NURSE WITH EYES. ORAL CARE PROVIDED. REPOSITIONED.
--- NOTE | 2018-10-14 03:09 | NUR ---
REASSESSMENT COMPLETE. NO NEW CHANGES NOTED IN PT CONDITION. EYES OPEN. VSS.
--- NOTE | 2018-10-14 07:00 | NUR ---
REC'D REPORT AND RESUMED CARE, ETT TO VENTILATION AND SECURED, 40% FIO2 IN USE, VSS, EYES ARE OPEN DOES NOT TRACK VOICE OR RESPOND TO NAME BEING CALLED, CORNEAL REFLEX NOTED, DOES NOT RESPOND TO STERNAL RUB + BABINSKI'S REFLEX OF TOES, LANG TO GRAVITY WITH NIMA DRAIANGE TO BAG, ASSESSMENT COMPLETED PER FLOWSHEET,
--- NOTE | 2018-10-14 09:00 | NUR ---
MORNING MEDS GIVEN PER JUN FLOWSHEET
[2018-10-14 09:36] LABS: CALCIUM 9.1 mg/dL (8.5-10.1); CARBON DIOXIDE 28.5 mmol/L (21.0-32.0); POTASSIUM - SERUM 3.5 mmol/L (3.5-5.1)
[2018-10-14 09:37] LABS: CREATININE - SERUM 2.2 mg/dL (0.6-1.3)
--- NOTE | 2018-10-14 10:34 | NUR ---
TO RADIOLOGY WITH HOSPITAL PERSONNEL X3 FOR CT OF HEAD WITH OUT CONTRAST
--- NOTE | 2018-10-14 11:00 | NUR ---
BACK FROM RADIOLOGY, CONNECTED TO ICU MONITORS, VSS, TREMORS NOTED, ASSESSMENT COMPLETED PER FLOWSHEET,TACHYPNEA NOTED 42 BPM
--- NOTE | 2018-10-14 12:00 | NUR ---
AND FAMILY AT BEDSIDE, STATUS UPDATED, AWAITING REPEAT CT SCAN RESULTS
--- NOTE | 2018-10-14 12:55 | NUR ---
NUTRITION F/U PT REMAINS ON VENT. GLUCERNA 1.0 AT 65 CC/HR. WILL CONTINUE TO PROVIDE GLUCERNA, MONITOR PT PROGRESS. MAY NEED TUBE FEED RATE INCREASE IF REMAINS ON VENT. RD FOLLOWING
[2018-10-14 13:12] LABS: FUNGUS STAIN Final report (())
--- NOTE | 2018-10-14 15:00 | NUR ---
ASSESSMENT COMPLETED PER FLOWSHEET, NO ACUTECHANGE FROM PREVIOUS
--- NOTE | 2018-10-14 17:00 | NUR ---
DR MCQUEEN HERE FOR EVAL OF REPEAT HEAD CT, PC TO QASIM, RESULTS GIVEN
[2018-10-14 18:10] LABS: ACID FAST SMEAR Negative (()); AFB SPECIMEN PROCESSING Concentration (())
--- NOTE | 2018-10-14 19:21 | NUR ---
BEDSIDE SHIFT REPORT GIVEN BY DEPARTING RN. PT LAYING IN BED WITH EYES CLOSED. UNRESPONSIVE. PUPILS FIXED. LIMBS FLACCID. RT FA PIV INFUSING MD ORDERED MEDS. HYPO BS. F/C NOTED. VENTILATED WITHOUT RESTRAINTS. VSS. SAFETY MEASURES IN PLACE. ORAL CARE PROVIDED. REPOSITIONED FOR COMFORT. CBIR.
--- NOTE | 2018-10-14 20:18 | NUR ---
HS MEDS GIVEN. TOLERATED WELL. ORAL CARE PROVIDED. REPOSITIONED FOR COMFORT.
--- NOTE | 2018-10-14 23:09 | NUR ---
REASSESSMENT COMPLETE. NO NEW CHANGES IN PT CONDITION. REPOSITIONED. SAFETY MEASURES IN PLACE. CBIR.
[2018-10-15] VITALS (23 sets, daily range): BP systolic 95–123; BP diastolic 61–77
--- NOTE | 2018-10-15 03:21 | NUR ---
REASSESSMENT COMPLETE. REPOSITIONED. ORAL CARE PROVIDED.
[2018-10-15 04:24] LABS: CALCIUM 8.8 mg/dL (8.5-10.1); CARBON DIOXIDE 31.2 mmol/L (21.0-32.0); CREATININE - SERUM 1.8 mg/dL (0.6-1.3); VANCOMYCIN - RANDOM 15.1 ug/mL (10.0-20.0)
[2018-10-15 04:42] LABS: ANION GAP 10.9 mmol/L (8-16); POTASSIUM - SERUM 4.1 mmol/L (3.5-5.1)
--- NOTE | 2018-10-15 05:01 | NUR ---
CRITICALLY HIGH CHLORIDE LEVEL. DR. LALA PAGED. ORDERS RECEIVED, VERIFIED, AND READ BACK. SEE MAR FOR DETAILS.
--- NOTE | 2018-10-15 07:15 | NUR ---
REPORT RECEIVED. PT IS UNRESPONSIVE AND ON VENT. PUPILS ARE AT 1MM AND NONREACTIVE. PT DOES NOT AROUSE TO ANY STIMULI AT THIS TIME. PT HAS A RIGHT FOREARM IV WITH NS AT 5ML/HR AND D5 AT 100ML/HR. FENTANYL AT 75 MCG/HR IS ALSO INFUSING. PT HAS LANG. HAS OGT WITH GLUCERNA 1.0 AT 65ML/HR WHICH IS THE GOAL. HE GETS 20ML WATER FLUSH EVERY HR. VSS. WILL CONTINUE TO MONITOR.
--- NOTE | 2018-10-15 08:45 | NUR ---
PT REPOSITIONED AND SUCTIONED. PUT ON CPAP TRIAL BY RT. VSS. WILL CONTINUE TO MONITOR.
--- NOTE | 2018-10-15 09:59 | NUR ---
PT HAS TEMP OF 100.3 ORALLY. TYLENOL GIVEN PER OGT. WILL CONTINUE TO MONITOR.
--- NOTE | 2018-10-15 10:20 | NUR ---
AT BEDSIDE. UPDATED ON PT STATUS. VSS. WILL CONTINUE TO MONITOR.
--- NOTE | 2018-10-15 11:45 | NUR ---
PT SUCTIONED AND REPOSITIONED. WILL CONTINUE TO MONITOR.
--- NOTE | 2018-10-15 13:19 | NUR ---
GAVE 400ML OF FREE WATER BOLUS PER DR MCQUEEN'S ORDERS. BS WAS 446 ON POC. HAD LAB COME DRAW A GLUCOSE. GAVE [address] MCQUEEN IN UNIT WHEN GIVING INSULIN. NOTIFIED HIM. WILL LET DR ABEBE KNOW.
--- NOTE | 2018-10-15 14:13 | NUR ---
DR SONG ROUNDED AND WANTS THE D5W STOPPED. SAID IT INCREASES EDEMA IN THE BRAIN. ASKED IF NEPHROLOGY WOULD CONSIDER 1/2NS.
--- NOTE | 2018-10-15 14:48 | NUR ---
SPOKE WITH NEPHROLOGY STACIE SANCHEZ. CHANGED FLUIDS TO 1/2NS AND STOPPED D5W. SHE ALSO UPDATED THE BANANA BAG AND FSBS. AWARE OF HIGH BLOOD SUGAR.
--- NOTE | 2018-10-15 16:30 | NUR ---
400ML OF WATER GIVEN VIA OGT. VSS. PT REPOSITIONED AND SUCTIONED. AT BEDSIDE. UPDATED. DISCUSSED WITH THE POSSIBILITY OF TRACH AND PEG PER DR SONG. NO OTHER QUESTIONS AT THIS TIME.
--- NOTE | 2018-10-15 18:00 | NUR ---
VSS. BLOOD SUGAR STILL TRENDING HIGH. NEPHROLOGY AWARE. WILL CONTINUE TO MONITOR.
--- NOTE | 2018-10-15 19:30 | NUR ---
ASSESSMENT COMPLETED PER FLOWSHEETS. PT ON VENT WIHTOUT DISTRESS. SR ON CM, LUNG SOUNDS CRACKLES TO ULB WITH DIMINISHED TO LLB, UNLABORED. PT SUCTIONED, GAG PRESENT. PPP. LANG TO GRAVITY WITH CL/Y DRAINAGE TO BAG. HOB UP. SIDE RAILS UP. CONT TO MONITOR.
--- NOTE | 2018-10-15 21:00 | NUR ---
FAMILY AT BEDSIDE. UPDATED.
--- NOTE | 2018-10-15 23:00 | NUR ---
REASSESSMENT COMPELTED. SEE FLOWSHEETS FOR ALL FINDINGS. NO ACUTE CHANGES NOTED. VSS CONT TO MONTIOR.
[2018-10-16] VITALS (71 sets, daily range): BP systolic 88–130; BP diastolic 60–88
--- NOTE | 2018-10-16 01:00 | NUR ---
REPOSITIONED FOR COMFORT. MOUTH CARE PRVIDED PER VAP. GAG REFLEX NOTED WITH SUCTIONING. HOB UP. CPOC.
--- NOTE | 2018-10-16 03:00 | NUR ---
BEDBATH COMPLETED. CHC BATH DONE. LINEN CHANGED. SKIN CARE PROVIDED. MOUTH CARE DONE PER VAP. REPOSIIONED FOR COMFORT. REASSESSMENT COMPLETED PER FLOW SHEETS. WEAGES FOR SUPPORT. HEELS ELEVATED, HOB UP. CPOC.
[2018-10-16 03:41] LABS: ANION GAP 15.2 mmol/L (8-16); CREATININE - SERUM 1.6 mg/dL (0.6-1.3); POTASSIUM - SERUM 4.2 mmol/L (3.5-5.1)
--- NOTE | 2018-10-16 07:15 | NUR ---
REPORT RECEIVED. PT ON VENT. TEMP 99.6 ORALLY. TACHYPNEIC. WALKED IN ROOM AND RESP WERE 39 THEN WERE 26. WILL MONITOR AND CALL DOCTOR. PT HAS RICKEY. HE IS ON THE FEEDING TUBE WITH GLUCERNA INFUSING AT GOAL OF 65ML/HR. PT IS GETTING WATER FLUSHES Q4H PER DOCTOR MCQUEEN. PT SQUEEZED EYES WHEN ESTIMATOR JEWELRY AND I WERE CHECKING HIS PUPILS. DID NOT MOVE ANYTHING ELSE. PT HAS IV TO RIGHT FOREARM. 1/2NS INFUSING AT 100ML/HR. WILL CONTINUE TO MONITOR.
--- NOTE | 2018-10-16 08:31 | NUR ---
Nutrition follow-up: Pt remains intubated, sedated Glucerna 1.0 eryn infusing @ 65 ml/hr Labs reviewed; Glucose extremely high Wt: 267# Pt tolerating TF at this time RDN following.
--- NOTE | 2018-10-16 08:39 | NUR ---
CALLED DR SONG ABOUT PT'S TACHYPNEA. HE STATED TO PUT HIM ON PROPOFOL FOR ABOUT AN HR. 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 DR SONG SAID HE WOULD BE ROUNDING IN A LITTLE BIT TO ASSESS PT. ASKED IF PULMONARY THOUGHT THE TACHYPNEA MIGHT BE LUNG RELATED. 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 WILL SPEAK WITH DR MCQUEEN.
--- NOTE | 2018-10-16 10:23 | NUR ---
PT IS STILL BREATHING QUICKLY ON LOW DOSE PROPOFOL. RATE RANGING FROM 28-50. INCREASED PROPOFOL RATE. WILL TURN SEDATION OFF IN [address] SONG ROUNDS AND CAN ASSESS PT OFF SEDATION PER HIS REQUEST.
--- NOTE | 2018-10-16 10:49 | NUR ---
DR SONG ROUNDED. STATED I COULD USE THE PROPOFOL TO GET THE RESPIRATIONS DOWN BUT TO TRY TO WEAN THE PT BACK OFF SOON POSSIBLE. DR SONG UPDATED PT'S . STATED HE WOULD GIVE THE PT 10 DAYS FROM NOW TO SEE HOW HE DOES NEUROLOGICALLY THEN REASSESS AND SEE IF DECISIONS NEEDED TO BE MADE. VERBALIZED UNDERSTANDING. PROPOFOL TURNED BACK ON AND INCREASED. WILL MONITOR.
--- NOTE | 2018-10-16 10:57 | NUR ---
OGT FLUSH INCREASED TO 50ML/HR PER RENAL VIDEO PRODUCTION ASSISTANTROSITA. SAID TO STOP THE 400ML WATER BOLUSES.
[2018-10-16 11:10] LABS: FUNGUS MYCOLOGY CULTURE Preliminary report (())
--- NOTE | 2018-10-16 11:35 | MORECARE ---
CASE MANAGEMENT DISCHARGE SUMMARY PATIENT: DAYTON METZGER UNIT: [id number] ADM DATE: 10/08/18 AGE: 73 : 47 SEX: M ROOM/BED: D.2312 AUTHOR: SHAKEEL SAUCEDA PHYSICIAN: REFERRING PHYSICIAN: FRANCIE MEDINA MD DATE OF SERVICE: 10/16/18 Discharge Plan Patient Name: DAYTON METZGER Facility: [facility]:[place] : 1945 Planned Disposition: Anticipated Discharge Date: Discharge Date: Expected LOS: Initial Reviewer: [email or web address] Initial Review Date: 10/08/2018 Generated: 10/16/18 12:35 pm Comments DCP- Discharge Planning Updated by [email or web address]: Jazmyn Adam on 10/16/18 10:[address] Patient Name: DAYTON METZGER Admission Status: ER Accout number: [id number] Admission Date: 10-08-2018 : 1945 Admission Diagnosis:TRAUM SUBRAC HEM W/O LOSS OF CONSCIOUSNESS, INIT Attending: FRANCIE MEDINA Current LOS: 8 Anticipated DC Date: Planned Disposition: Primary Insurance: MEDICARE A & B Discharge Planning Comments: PATIENT IS INTUBATED AND IS IN ROOM. I SPOKE TO HER ABOUT DC PLANNING/NEEDS. SHE SAID THE DOCTOR STATED HE WILL BE IN HERE ANOTHER WEEK. ANTICIPATING LTACH NEED. CM WILL CONTACT TERRENCE [facility]. Trim Crew Supervisor: Jazmyn Adam DCP- Discharge Planning Updated by [email or web address]: Jazmyn Adam on 10/12/18 3:[address] Patient Name: DAYTON METZGER Admission Status: ER Accout number: [id number] Admission Date: 10-08-2018 : 1945 Admission Diagnosis:TRAUM SUBRAC HEM W/O LOSS OF CONSCIOUSNESS, INIT Attending: FRANCIE MEDINA Current LOS: 4 Anticipated DC Date: Planned Disposition: Primary Insurance: MEDICARE A & B Discharge Planning Comments: PATIENT IS INTUBATED AT THIS TIME, NO FAMILY HERE. RN STATES HE FELL AT HOME AND HAS A SUBDURAL HEMATOMA. STATES HERE EARLIER. I WILL TRY TO CATCH HER NEXT TIME SHE IS HERE. CM TO FOLLOW AND ASSIST NEEDED. Trim Crew Supervisor: Jazmyn Adam DCP- Discharge Planning Updated by [email or web address]: Ladi Harden on 10/09/18 4:[address] CM attempted to visit with patient regarding discharge planning/ needs. Patient currently on vent no family available. CM will continue to follow and assist as needed with discharge planning / needs DCPIA - Discharge Planning Initial Assessment Updated by [email or web address]: Jazmyn Adam on 10/12/18 4:04 pm * Is the patient Alert and Oriented? No * PCP KARLY * Preadmission Environment Home Alone * ADLs Independent * List name and contact numbers for known caregivers / representatives who currently or will assist patient after discharge: QASIM, SPOUSE, Last DP export: 10/12/18 3:14 pm Patient Name: DAYTON METZGER Page [phone] at 1135 All edits/amendments must be made on the electronic document DICTATION DATE: 10/16/18 113 POLICY CHANGE CLERKS SUPERVISOR: LEAH 10/16/18 1134 RPT#: [id number] DC DATE: STATUS: ADM IN [facility] [address] [place] [address] END OF REPORT
--- NOTE | 2018-10-16 12:15 | NUR ---
RESPIRATIONS HAVE DECREASED AND ARE NOW 14-20. DECREASED THE PROPOFOL. WILL CONTINUE TO MONITOR.
--- NOTE | 2018-10-16 14:23 | MORECARE ---
CASE MANAGEMENT DISCHARGE SUMMARY PATIENT: DAYTON METZGER UNIT: [id number] ADM DATE: 10/08/18 AGE: 73 : 47 SEX: M ROOM/BED: D.2312 AUTHOR: SHAKEEL SAUCEDA PHYSICIAN: REFERRING PHYSICIAN: FRANCIE MEDINA MD DATE OF SERVICE: 10/16/18 Discharge Plan Patient Name: DAYTON METZGER Facility: [facility]:[place] : 1945 Planned Disposition: Anticipated Discharge Date: Discharge Date: Expected LOS: Initial Reviewer: [email or web address] Initial Review Date: 10/08/2018 Generated: 10/16/18 3:22 pm Comments DCP- Discharge Planning Updated by [email or web address]: Jazmyn Adam on 10/16/18 10:[address] Patient Name: DAYTON METZGER Admission Status: ER Accout number: [id number] Admission Date: 10-08-2018 : 1945 Admission Diagnosis:TRAUM SUBRAC HEM W/O LOSS OF CONSCIOUSNESS, INIT Attending: FRANCIE MEDINA Current LOS: 8 Anticipated DC Date: Planned Disposition: Primary Insurance: MEDICARE A & B Discharge Planning Comments: PATIENT IS INTUBATED AND IS IN ROOM. I SPOKE TO HER ABOUT DC PLANNING/NEEDS. SHE SAID THE DOCTOR STATED HE WILL BE IN HERE ANOTHER WEEK. ANTICIPATING LTACH NEED. CM WILL CONTACT TERRENCE [facility]. C Application Developer: Jazmyn Adam DCP- Discharge Planning Updated by [email or web address]: Jazmyn Adam on 10/12/18 3:[address] Patient Name: DAYTON METZGER Admission Status: ER Accout number: [id number] Admission Date: 10-08-2018 : 1945 Admission Diagnosis:TRAUM SUBRAC HEM W/O LOSS OF CONSCIOUSNESS, INIT Attending: FRANCIE MEDINA Current LOS: 4 Anticipated DC Date: Planned Disposition: Primary Insurance: MEDICARE A & B Discharge Planning Comments: PATIENT IS INTUBATED AT THIS TIME, NO FAMILY HERE. RN STATES HE FELL AT HOME AND HAS A SUBDURAL HEMATOMA. STATES HERE EARLIER. I WILL TRY TO CATCH HER NEXT TIME SHE IS HERE. CM TO FOLLOW AND ASSIST NEEDED. C Application Developer: Jazmyn Adam DCP- Discharge Planning Updated by [email or web address]: Ladi Harden on 10/09/18 4:[address] CM attempted to visit with patient regarding discharge planning/ needs. Patient currently on vent no family available. CM will continue to follow and assist as needed with discharge planning / needs DCPIA - Discharge Planning Initial Assessment Updated by [id number]: Jazmyn Adam on 10/12/18 4:04 pm * Is the patient Alert and Oriented? No * PCP KARLY * Preadmission Environment Home Alone * ADLs Independent * List name and contact numbers for known caregivers / representatives who currently or will assist patient after discharge: QASIM, SPOUSE, Last DP export: 10/16/18 10:35 a Patient Name: DAYTON METZGER Page [id number] at 1423 All edits/amendments must be made on the electronic document DICTATION DATE: 10/16/181421 MARKETING INFORMATION MANAGER: LEAH 10/16/18 142 RPT#: [id number] DC DATE: STATUS: ADM IN [facility] [address] [place] [address] END OF REPORT
--- NOTE | 2018-10-16 14:32 | MORECARE ---
CASE MANAGEMENT DISCHARGE SUMMARY PATIENT: DAYTON METZGER UNIT: [id number] ADM DATE: 10/08/18 AGE: 73 : [birth year] SEX: M ROOM/BED: D.2312 AUTHOR: SHAKEEL SAUCEDA PHYSICIAN: REFERRING PHYSICIAN: FRANCIE MEDINA MD DATE OF SERVICE: 10/16/18 Discharge Plan Patient Name: DAYTON METZGER Facility: [facility]:[place] : 1945 Planned Disposition: Anticipated Discharge Date: Discharge Date: Expected LOS: Initial Reviewer: [email or web address] Initial Review Date: 10/08/2018 Generated: 10/16/18 3:32 pm Comments DCP- Discharge Planning Updated by [id number]: Jazmyn Adam on 10/16/18 10:[address] Patient Name: DAYTON METZGER Admission Status: ER Accout number: [id number] Admission Date: 10-08-2018 : 1945 Admission Diagnosis:TRAUM SUBRAC HEM W/O LOSS OF CONSCIOUSNESS, INIT Attending: FRANCIE MEDINA Current LOS: 8 Anticipated DC Date: Planned Disposition: Primary Insurance: MEDICARE A & B Discharge Planning Comments: PATIENT IS INTUBATED AND IS IN ROOM. I SPOKE TO HER ABOUT DC PLANNING/NEEDS. SHE SAID THE DOCTOR STATED HE WILL BE IN HERE ANOTHER WEEK. ANTICIPATING LTACH NEED. CM WILL CONTACT TERRENCE PHILLIP [facility]. Tool Keeper: Jazmyn Adam DCP- Discharge Planning Updated by [email or web address]: Jazmyn Adam on 10/12/18 3:[address] Patient Name: DAYTON METZGER Admission Status: ER Accout number: [id number] Admission Date: 10-08-2018 : 1945 Admission Diagnosis:TRAUM SUBRAC HEM W/O LOSS OF CONSCIOUSNESS, INIT Attending: FRANCIE MEDINA Current LOS: 4 Anticipated DC Date: Planned Disposition: Primary Insurance: MEDICARE A & B Discharge Planning Comments: PATIENT IS INTUBATED AT THIS TIME, NO FAMILY HERE. RN STATES HE FELL AT HOME AND HAS A SUBDURAL HEMATOMA. STATES HERE EARLIER. I WILL TRY TO CATCH HER NEXT TIME SHE IS HERE. CM TO FOLLOW AND ASSIST NEEDED. Tool Keeper: Jazmyn Adam DCP- Discharge Planning Updated by [email or web address]: Ladi Harden on 10/09/18 4:[address] CM attempted to visit with patient regarding discharge planning/ needs. Patient currently on vent no family available. CM will continue to follow and assist as needed with discharge planning / needs DCPIA - Discharge Planning Initial Assessment Updated by [email or web address]: Jazmyn Adam on 10/12/18 4:04 pm * Is the patient Alert and Oriented? No * PCP KARLY * Preadmission Environment Home Alone * ADLs Independent * List name and contact numbers for known caregivers / representatives who currently or will assist patient after discharge: QASIM, SPOUSE, External Providers External Provider: Carlos [facility] Next Contact Date: Service Request Date: Service Type: Resolution: Reviewer: Comments: Last DP export: 10/16/18 1:23 p Patient Name: DAYTON METZGER Page [phone] at 1432 All edits/amendments must be made on the electronic document DICTATION DATE: 10/16/18 1431 CHOIRMASTER: LEAH 10/16/18 1431 RPT#: [id number] DC DATE: STATUS: ADM IN [facility] [address] [place] [address] END OF REPORT
--- NOTE | 2018-10-16 14:45 | NUR ---
TEMP CHECKED ORALLY. 98.4.
--- NOTE | 2018-10-16 16:46 | NUR ---
TUBE FEED TUBING CHANGED OUT. GLUCERNA 1.0 INFUSING AT 65ML/HR WHICH IS GOAL WITH A 50ML/HR WATER FLUSH PER RENAL.
--- NOTE | 2018-10-16 17:59 | NUR ---
BANANA BAG HANGING. VSS. PT REPOSITIONED AND SUCTIONED. BS OF 324 COVERED.
[2018-10-17] VITALS (46 sets, daily range): BP systolic 96–137; BP diastolic 58–81
[2018-10-17 04:16] LABS: ANION GAP 9.3 mmol/L (8-16); CALCIUM 8.4 mg/dL (8.5-10.1); CARBON DIOXIDE 27.3 mmol/L (21.0-32.0); CREATININE - SERUM 1.3 mg/dL (0.6-1.3); POTASSIUM - SERUM 3.6 mmol/L (3.5-5.1)
--- NOTE | 2018-10-17 07:30 | NUR ---
NOT RESPOND TO PAINFUL STIMULATION. DIPIRVAN CUT IN HALF TO 15 MCG/KG/MIN. TO CHECK PATIENT'S RESPONSE. SKIN WARM AND DRY. ETT SECURE BILATERAL LUNG SOUNDS EQUAL. PUPILS EQUAL FIXED AND SMALL. OG SECURE TO ETT TUBE. INFUSING WITH GLUCERNA AT 65 ML HOUR. IV RIGHT HAND INFUSING WITH DIPRIVAN AND 1/2NS AT 100 ML HOUR. NO REDNESS OR SWELLING. SALINE LOCK IV IN LEFT HAND. LANG CATH PATENT DRAINING CLEAR NIMA URINE. REPOSITIONED. NO DISTRESS. HEAD OF BED ELEVATED 30 DEGREES. MONITOR SR.
--- NOTE | 2018-10-17 09:00 | NUR ---
HERE UPDATE GIVEN.
--- NOTE | 2018-10-17 10:00 | NUR ---
DR. BRANDT HERE NO NEW ORDERS VOICED
--- NOTE | 2018-10-17 12:00 | NUR ---
NO CHANGES, DOES NOT RESPOND TO PAINFUL STIMULATION.
--- NOTE | 2018-10-17 13:30 | NUR ---
DR. SONG HERE ORDER RECEIVED. RANDY TURNED OFF
--- NOTE | 2018-10-17 14:00 | NUR ---
DR. ZAMAN HERE VENT CHANGES MADE
--- NOTE | 2018-10-17 16:00 | NUR ---
RANDOMLY OPENING EYES, NO EYE CONTACT. MORE MUSCLE TIGHNESS IN ARMS NOTED. COUGHING LARGE AMOUNT WHITE SPUTUM PER ETT, INCREASE IN ORAL SECRETIONS. RESP RATE DOES GET INTO 50'S WHEN REPOSITIONED AND SUCTIONED BUT WILL COME DOWN TO 30'S WITHIN 10 MIN.
--- NOTE | 2018-10-17 17:00 | NUR ---
HERE UPDATE GIVEN. NO CHANGE IN PATIENT. SOMETIME WILL OPEN EYES TO STIMULATION, BUT ALL THE TIME.
--- NOTE | 2018-10-17 18:00 | NUR ---
NO CHANGE IN PATIENT
--- NOTE | 2018-10-17 19:00 | NUR ---
REPORT RECEIVED INITIAL ASSESSMENT COMPLETE. PT UNRESPONSIVE INTUBATED VENT ON SIMV MODE SEE RESP NOTES. NO SEDATION. GENERALIZED EDEMA ALL EXTREMITIES ELEVATED WITH PILLOWS. PT REPOSTIONED WITH [facility] VSS AT THIS TIME WILL CPOC
--- NOTE | 2018-10-17 23:00 | NUR ---
REASSESSMENT MADE NO CHANGES. PT RESP UP TO 48 WHEN REPOSITIONING. TAKES FEW MINUTES FOR RATE TO DECREASE
[2018-10-18] VITALS (24 sets, daily range): BP systolic 107–151; BP diastolic 56–91
--- NOTE | 2018-10-18 00:30 | NUR ---
NO CHANGE IN PTS STATUS REPOSITIONED WITH [facility] AND PROVIDED ORAL CARE. COLLECTED UA ORDERED ON 10/13/18 AND SENT TO LAB. CPOC VSS AT THIS TIME
[2018-10-18 01:28] LABS: APPEARANCE CLEAR (CLEAR); BILIRUBIN NEGATIVE (NEGATIVE); COLOR YELLOW (YELLOW); GLUCOSE 250 mg/dL (NEGATIVE); KETONE NEGATIVE (NEGATIVE); NITRITE NEGATIVE (NEGATIVE); PROTEIN NEGATIVE (NEGATIVE); SPECIFIC GRAVITY 1.015 (1.005-1.020); UROBILINOGEN NORMAL (NORMAL)
--- NOTE | 2018-10-18 03:00 | NUR ---
REASSESSMENT MADE NO CHANGES CPOC
[2018-10-18 03:41] LABS: CALCIUM 8.2 mg/dL (8.5-10.1); CARBON DIOXIDE 26.9 mmol/L (21.0-32.0); CHLORIDE - SERUM 109 mmol/L (98-107); POTASSIUM - SERUM 3.6 mmol/L (3.5-5.1); SODIUM 142 mmol/L (136-145); eGFR NON AFRICAN AMERICAN 88 mL/min (90-120)
[2018-10-18 03:53] LABS: CALC OSMOLALITY 295 mosm/kg (275-300); CREATININE - SERUM 0.9 mg/dL (0.6-1.3); GLUCOSE 227 mg/dL (74-106); UREA NITROGEN 30 mg/dL (7-18)
--- NOTE | 2018-10-18 05:00 | NUR ---
WHILE PROVIDING ORAL CARE AND WITH ORAL/ ETT SUCTIONING PTS RIGHT EYE OPEN PARTIALLY AND PT APPEARS TO GRIMACE AND BITE ON ETT. REPOSITIONED TO SIDE WITH WEDGE PILLOWS PT APPEARS TO GRIMACE VSS CPOC
--- NOTE | 2018-10-18 06:00 | NUR ---
PARTIAL CHG BATH AND LINEN CHANGE
--- NOTE | 2018-10-18 07:30 | NUR ---
NO REACTION TO PAINFUL STIMULI. PUPILS ALITTLE LARGER AND REACTIVE. ETT SECURE TO VENT BILATERAL LUNG SOUNDS EQUAL. OG INFUSING WITH GLUCERNA AT 65 ML HOUR AND 400ML FREE WATER Q 4 HOURS PER PUMP. LANG CATH PATENT DRAINING CLEAR NIMA URINE. IV RIGHT HAND WITHOUT REDNESS OR SWELLING. MONITOR SR. RESP RATE IN 30'S TEMP 101.2 AX, BLOOD CULTURES AND URINE CULTURES ORDERED.HEAD OF BED ELEVATED 30 DEGREES. SCD ON LOWER LEGS
--- NOTE | 2018-10-18 09:30 | NUR ---
HERE UPDATE PROVIDED. STATES PATEINT DOES NOT FOLLOW HER WITH HIS EYES
--- NOTE | 2018-10-18 10:30 | NUR ---
DR. MEDINA HERE UPDATE GIVEN
--- NOTE | 2018-10-18 12:12 | NUR ---
ASSESSMENT DOCUMENTED. PUPILS BIGGER AND BRISK. NOT MOVING EXTREMITIES STILL RANDOMLY OPENS LEFT EYE BUT DOES NOT FOLLOW OR MAKE EYE CONTACT
--- NOTE | 2018-10-18 14:00 | NUR ---
DR. ZAMAN HERE PATIENT OPENED EYES TO STIMULATION
--- NOTE | 2018-10-18 16:00 | NUR ---
ASSESSEMENT DOCUMENTED. OPENING EYES BUT NOT FOLLOWING WITH EYES OR MAKING EYE CONTACT. OPEN EYES TO STIMULATION. RESP RATE MORE IN 30'S THIS AFTERNOON. TEMP COMING DOWN. IV PATENT RIGHT HAND.
--- NOTE | 2018-10-18 17:00 | NUR ---
HERE UPDATE GIVEN.
[2018-10-19] VITALS (19 sets, daily range): BP systolic 100–136; BP diastolic 67–84
[2018-10-19 04:46] LABS: HEMOGLOBIN 10.4 g/dL (13.5-17.5); MCH 31.5 pg (26.0-34.0); MCHC 33.5 g/dL (31.0-37.0); MCV 93.9 fL (80.0-100.0); MEAN PLATELET VOLUME 11.2 fL (7.4-10.4); PLATELET COUNT 227 10x3/uL (130-400); RDW 13.7 % (11.5-14.5); WBC 13.6 10x3/uL (4.8-10.8)
[2018-10-19 04:56] LABS: CALC OSMOLALITY 289 mosm/kg (275-300); CALCIUM 7.9 mg/dL (8.5-10.1); CARBON DIOXIDE 24.3 mmol/L (21.0-32.0); CHLORIDE - SERUM 105 mmol/L (98-107); CREATININE - SERUM 0.8 mg/dL (0.6-1.3); POTASSIUM - SERUM 3.5 mmol/L (3.5-5.1); SODIUM 138 mmol/L (136-145); UREA NITROGEN 25 mg/dL (7-18); eGFR NON AFRICAN AMERICAN > 90 mL/min (90-120)
[2018-10-19 05:04] LABS: GLUCOSE 282 mg/dL (74-106)
[2018-10-19 05:12] LABS: EOSINOPHILS 3 % (0-7); LYMPHOCYTES 10 % (15-50); MONOCYTES 5 % (2-11); NEUTROPHILS 80 % (40-80); PLATELET ESTIMATE NORMAL
--- NOTE | 2018-10-19 07:20 | NUR ---
REPORT RECEIVED. PT ON VENT. SETTINGS PER RT. IVS TO RIGHT WRIST AND LEFT HAND. SEDATION OFF. RESPIRATIONS ARE 29-30. DOCTORS ARE AWARE AND SAID TO LEAVE OFF SEDATION. PT HAS 1/2NS INFUSING AT 100ML/HR. LEAD MAN OVER ALL DIES IN PATTERN SHOP NURSE SAID PUPILS WERE REACTING. WE CHECKED TOGETHER BEFORE SHE LEFT. THE PUPILS WERE PINPOINT AND BARELY REACTED. PT DID YAWN DURING ASSESSMENT AND DID COUGH. PT HAS GLUCERNA INFUSING AT 65ML/HR WHICH IS GOAL AND HAS A 200ML FLUSH EVERY 2 HRS. WAS REPORTED THAT PT HAD LARGE BM DURING THE NIGHT. WILL CONTINUE TO MONITOR FOR REACTIONS FROM PT. VSS.
--- NOTE | 2018-10-19 09:30 | NUR ---
AT BEDSIDE. UPDATED WITH PT'S CONDITION. MEDICATIONS GIVEN. VSS. WILL CONTINUE TO MONITOR.
--- NOTE | 2018-10-19 09:33 | NUR ---
NUTRITION F/U PT REMAINS ON VENT. GLUCERNA 1.0 AT 65 CC/HR. WILL CONTINUE TO PROVIDE TUBE FEEDS, MONITOR PT PROGRESS. RD FOLLOWING
--- NOTE | 2018-10-19 11:15 | NUR ---
PT NOT RESPONDING. PUPILS AT 1MM AND NOT REACTING. VENT SETTINGS PER RT. VSS. TUBE FEEDINGS INFUSING WITH NO ISSUES. PT SUCTIONED AND REPOSITIONED. WILL CONTINUE TO MONITOR.
--- NOTE | 2018-10-19 13:45 | NUR ---
DR BRANDT IN ON PT. UPDATED. NO NEW ORDERS AT THIS TIME. VSS. WILL CONTINUE TO MONITOR.
--- NOTE | 2018-10-19 15:35 | NUR ---
PT ACC[facility]ED TO [facility] WILL NOTIFY .
--- NOTE | 2018-10-19 17:30 | NUR ---
SPOKE WITH ABOUT PT BEING ACCEPTED TO [facility]. STATED SHE DIDN'T KNOW ANYTHING ABOUT THIS. ASKED CHARGE NURSE, NANCY, TO SEE IF WE COULD FIND OUT IF CM SPOKE WITH FAMILY ABOUT PLACEMENT LAST WEEK. NANCY SPOKE WITH FAMILY. (QASIM) THEN WAS ABLE TO SPEAK WITH DR SONG ON THE PHONE ABOUT PT CONDITION. STATED THAT THEY WOULD MEET IN THE MORNING AT 0830 ABOUT DECIDING ON IF THE PT SHOULD GET A TRACH AND PEG AND GO TO ANOTHER FACILITY OR IF THE PT SHOULD BE EXTUBATED AND BE ON HOSPICE. VERBALIZED UNDERSTANDING TO ME.
--- NOTE | 2018-10-19 19:00 | NUR ---
SHIFT ASSESSMENT FOR 10/19/18 CHARTED ON WRONG DATE (10/18/18)
--- NOTE | 2018-10-19 19:05 | MORECARE ---
CASE MANAGEMENT DISCHARGE SUMMARY PATIENT: DAYTON METZGER UNIT: [id number] ADM DATE: 10/08/18 AGE: 73 : 47 SEX: M ROOM/BED: D.2312 AUTHOR: SHAKEEL SAUCEDA PHYSICIAN: REFERRING PHYSICIAN: FRANCIE MEDINA MD DATE OF SERVICE: 10/19/18 Discharge Plan Patient Name: DAYTON METZGER Facility: [facility]:[place] : 1945 Planned Disposition: Anticipated Discharge Date: Discharge Date: Expected LOS: Initial Reviewer: [email or web address] Initial Review Date: 10/08/2018 Generated: 10/19/18 8:05 pm Comments DCP- Discharge Planning Updated by [id number]: Ladi Harden on 10/19/18 6:[address] Terrence from [facility] called this am and came to evaluate patient today. Dr. Tubbs will continue to follow patient in [facility] @ [facility] in [place]. Terrence called back this evening and stated they can accept patient in am. Terrence requested CD of all images and updated MAR in am. CM relayed information to nursing and asked to make sure patient's is notified that patient will discharge tomorrow. Patient's has requested to speak with Dr. Mars prior to patient going to [facility]. Nursing is paging Dr. Mars for spouse. CM will continue to follow and assist as needed with discharge planning / needs. DCP- Discharge Planning Updated by [email or web address]: Jazmyn Adam on 10/16/18 10:[address] Patient Name: DAYTON METZGER Admission Status: ER Accout number: [id number] Admission Date: 10-08-2018 : 1945 Admission Diagnosis:TRAUM SUBRAC HEM W/O LOSS OF CONSCIOUSNESS, INIT Attending: FRANCIE MEDINA Current LOS: 8 Anticipated DC Date: Planned Disposition: Primary Insurance: MEDICARE A & B Discharge Planning Comments: PATIENT IS INTUBATED AND IS IN ROOM. I SPOKE TO HER ABOUT DC PLANNING/NEEDS. SHE SAID THE DOCTOR STATED HE WILL BE IN HERE ANOTHER WEEK. ANTICIPATING LTACH NEED. CM WILL CONTACT TERRENCE AT [facility]. Marble Machine Operator: Jazmyn Adam DCP- Discharge Planning Updated by [email or web address]: Jazmyn Adam on 10/12/18 3:[address] Patient Name: DAYTON METZGER Admission Status: ER Accout number: [id number] Admission Date: 10-08-2018 : 1945 Admission Diagnosis:TRAUM SUBRAC HEM W/O LOSS OF CONSCIOUSNESS, INIT Attending: FRANCIE MEDINA Current LOS: 4 Anticipated DC Date: Planned Disposition: Primary Insurance: MEDICARE A & B Discharge Planning Comments: PATIENT IS INTUBATED AT THIS TIME, NO FAMILY HERE. RN STATES HE FELL AT HOME AND HAS A SUBDURAL HEMATOMA. STATES HERE EARLIER. I WILL TRY TO CATCH HER NEXT TIME SHE IS HERE. CM TO FOLLOW AND ASSIST NEEDED. Marble Machine Operator: Jazmyn Adam DCP- Discharge Planning Updated by [email or web address]: Ladi Harden on 10/09/18 4:[address] CM attempted to visit with patient regarding discharge planning/ needs. Patient currently on vent no family available. CM will continue to follow and assist as needed with discharge planning / needs DCPIA - Discharge Planning Initial Assessment Updated by [id number]: Jazmyn Adam on 10/12/18 4:04 pm * Is the patient Alert and Oriented? No * PCP KARLY * Preadmission Environment Home Alone * ADLs Independent * List name and contact numbers for known caregivers / representatives who currently or will assist patient after discharge: QASIM, SPOUSE, Last DP export: 10/16/18 1:32 p Patient Name: DAYTON METZGER Page 72706 at 1905 All edits/amendments must be made on the electronic document DICTATION DATE: 10/19/181904 MANAGER SALT: LEAH 10/19/181904 RPT#: [id number] DC DATE: STATUS: ADM IN [facility] [address] [place] [address] END OF REPORT
[2018-10-20] VITALS (24 sets, daily range): BP systolic 107–136; BP diastolic 63–80
[2018-10-20 04:27] LABS: BASOPHILS 0.2 % (0-2); EOSINOPHILS 2.9 % (0-7); HEMATOCRIT 30.1 % (42.0-54.0); HEMOGLOBIN 10.1 g/dL (13.5-17.5); IMMATURE GRANULOCYTES 2.3 % (0-5); LYMPHOCYTES 7.3 % (15-50); MCH 31.1 pg (26.0-34.0); MCHC 33.6 g/dL (31.0-37.0); MCV 92.6 fL (80.0-100.0); MEAN PLATELET VOLUME 10.7 fL (7.4-10.4); MONOCYTES 5.4 % (2-11); NEUTROPHILS 81.9 % (40-80); PLATELET COUNT 262 10x3/uL (130-400); RBC 3.25 10x6/uL (4.20-6.10); RDW 13.5 % (11.5-14.5); WBC 12.9 10x3/uL (4.8-10.8)
[2018-10-20 04:40] LABS: CALC OSMOLALITY 281 mosm/kg (275-300); CALCIUM 7.4 mg/dL (8.5-10.1); CARBON DIOXIDE 23.5 mmol/L (21.0-32.0); CHLORIDE - SERUM 103 mmol/L (98-107); CREATININE - SERUM 0.8 mg/dL (0.6-1.3); GLUCOSE 253 mg/dL (74-106); POTASSIUM - SERUM 3.6 mmol/L (3.5-5.1); SODIUM 135 mmol/L (136-145); UREA NITROGEN 22 mg/dL (7-18); eGFR NON AFRICAN AMERICAN > 90 mL/min (90-120)
--- NOTE | 2018-10-20 07:15 | NUR ---
SHIFT REPORT RECEIVED. PT ON VENT. SETTINGS PER RT. PT HAS IV IN RIGHT WRIST AND LEFT HAND. PT HAS LANG. PT HAS OGT WITH GLUCERNA INFUSING AT 65ML/HR WHICH IS GOAL. HE GETS 200ML FLUSHES EVERY 2 HOURS. VSS. WILL CONTINUE TO MONITOR.
--- NOTE | 2018-10-20 09:15 | NUR ---
DR SONG SPOKE WITH PT'S AND 'S SISTER REGARDING PT STATUS. PT'S HAS DECIDED THAT SHE WANTS PT TO GO ON HOSPICE BUT WOULD LIKE TO WAIT UNTIL TOMORROW SO SHE CAN CONTACT FRIENDS AND FAMILY AND GIVE THEM A CHANCE TO SEE PT.
--- NOTE | 2018-10-20 11:30 | NUR ---
VSS. PT SUCTIONED AND REPOSITIONED.
--- NOTE | 2018-10-20 13:15 | NUR ---
VISITOR AT PT BEDSIDE. VSS. NO NEW CHANGES. WILL CONTINUE TO MONITOR.
--- NOTE | 2018-10-20 15:26 | NUR ---
PT UNRESPONSIVE. VSS. NO CHANGES AT THIS TIME.
--- NOTE | 2018-10-20 17:45 | NUR ---
FAMILY IN WITH PT. UPDATED. WOULD LIKE FOR PT TO BE EXTUBATED TOMORROW AT 1000. CHARGE NURSE, NANCY, IN ROOM AT THAT TIME AND STATED SHE WOULD BE HERE TOMORROW AND WOULD MAKE SURE THAT HAPPENED. FAMILY HAS NO OTHER QUESTIONS AT THIS TIME.
--- NOTE | 2018-10-20 19:00 | NUR ---
REPORT RECEIVED. RECEIVED PATIENT IN BED WITH EYES OPEN. INTUBATED. ETT INTACT/SECURE/PATENT AND CONNECTED TO MECHANICAL VENT WITH SETTINGS ORDERED. MONITORS CONNECTED TO PATIENT WITH ALARMS SET. VSS. SHIFT ASSESSMENT COMPLETED AT THIS TIME WITH NO ACUTE DISTRESS OBSERVED. HOB UP 30 DEGREES
--- NOTE | 2018-10-20 19:55 | MORECARE ---
CASE MANAGEMENT DISCHARGE SUMMARY PATIENT: DAYTON METZGER UNIT: [id number] ADM DATE: 10/08/18 AGE: 73 : 47 SEX: M ROOM/BED: D.2312 AUTHOR: SHAKEEL SAUCEDA PHYSICIAN: REFERRING PHYSICIAN: FRANCIE MEDINA MD DATE OF SERVICE: 10/20/18 Discharge Plan Patient Name: DAYTON METZGER Facility: [facility]:[place] : 1945 Planned Disposition: Anticipated Discharge Date: Discharge Date: Expected LOS: Initial Reviewer: [email or web address] Initial Review Date: 10/08/2018 Generated: 10/20/18 8:55 pm Comments DCP- Discharge Planning Updated by [email or web address]: Ladi Harden on 10/20/18 6:[address] Mars met with patient's this am and decided on Hospice instead of LTACH. Plan to potentially terminally extubate on Friday with Hospice. CM called and notified Terrence with [facility] in change plans. CM will continue to follow and assist as needed with discharge planning / needs. DCP- Discharge Planning Updated by [email or web address]: Ladi Harden on 10/19/18 6:[address] Terrence from [facility] called this am and came to evaluate patient today. Dr. Tubbs will continue to follow patient in LTACH @ [facility] in [place]. Terrence called back this evening and stated they can accept patient in am. Terrence requested CD of all images and updated MAR in am. CM relayed information to nursing and asked to make sure patient's is notified that patient will discharge tomorrow. Patient's has requested to speak with Dr. Mars prior to patient going to LTACH. Nursing is paging Dr. Mars for spouse. CM will continue to follow and assist as needed with discharge planning / needs. DCP- Discharge Planning Updated by [id number]: Jazmyn Adam on 10/16/18 10:[address] Patient Name: DAYTON METZGER Admission Status: ER Accout number: [id number] Admission Date: 10-08-2018 : 1945 Admission Diagnosis:TRAUM SUBRAC HEM W/O LOSS OF CONSCIOUSNESS, INIT Attending: FRANCIE MEDINA Current LOS: 8 Anticipated DC Date: Planned Disposition: Primary Insurance: MEDICARE A & B Discharge Planning Comments: PATIENT IS INTUBATED AND IS IN ROOM. I SPOKE TO HER ABOUT DC PLANNING/NEEDS. SHE SAID THE DOCTOR STATED HE WILL BE IN HERE ANOTHER WEEK. ANTICIPATING LTACH NEED. CM WILL CONTACT TERRENCE [facility]. Sales And Service Associate: Jazmynchinedu Adam DCP- Discharge Planning Updated by [email or web address]: Jazmyn Adam on 10/12/18 3:[address] Patient Name: DAYTON METZGER Admission Status: ER Accout number: [id number] Admission Date: 10-08-2018 : 1945 Admission Diagnosis:TRAUM SUBRAC HEM W/O LOSS OF CONSCIOUSNESS, INIT Attending: FRANCIE MEDINA Current LOS: 4 Anticipated DC Date: Planned Disposition: Primary Insurance: MEDICARE A & B Discharge Planning Comments: PATIENT IS INTUBATED AT THIS TIME, NO FAMILY HERE. RN STATES HE FELL AT HOME AND HAS A SUBDURAL HEMATOMA. STATES HERE EARLIER. I WILL TRY TO CATCH HER NEXT TIME SHE IS HERE. CM TO FOLLOW AND ASSIST NEEDED. Sales And Service Associate: Jazmyn Adam DCP- Discharge Planning Updated by [email or web address]: Ladi Harden on 10/09/18 4:[address] CM attempted to visit with patient regarding discharge planning/ needs. Patient currently on vent no family available. CM will continue to follow and assist as needed with discharge planning / needs DCPIA - Discharge Planning Initial Assessment Updated by [id number]: Jazmyn Adam on 10/12/18 4:04 pm * Is the patient Alert and Oriented? No * PCP KARLY * Preadmission Environment Home Alone * ADLs Independent * List name and contact numbers for known caregivers / representatives who currently or will assist patient after discharge: QASIM, SPOUSE, Last DP export: 10/19/18 6:05 p Patient Name: DAYTON METZGER Page 53815 at 1954 All edits/amendments must be made on the electronic document DICTATION DATE: 10/20/181954 CRANE OPERATOR: LEAH 10/20/181954 RPT#: [id number] DC DATE: STATUS: ADM IN [facility] [address] [place] [address] END OF REPORT
--- NOTE | 2018-10-20 21:00 | NUR ---
IN BED RESTING WITH EYES OPEN. VSS
--- NOTE | 2018-10-20 23:00 | NUR ---
REASSESSMENT COMPLETED PER FLOW SHEET WITH NO CHANGES OR ACUTE DISTRESS OBSERVED. VSS
[2018-10-21] VITALS (19 sets, daily range): BP systolic 93–159; BP diastolic 62–87
--- NOTE | 2018-10-21 01:00 | NUR ---
RESTING WITH EYES CLOSED. VSS
[2018-10-21 04:53] LABS: BASOPHILS 0.2 % (0-2); EOSINOPHILS 1.8 % (0-7); HEMATOCRIT 30.8 % (42.0-54.0); HEMOGLOBIN 10.5 g/dL (13.5-17.5); IMMATURE GRANULOCYTES 1.7 % (0-5); LYMPHOCYTES 5.2 % (15-50); MCH 31.3 pg (26.0-34.0); MCHC 34.1 g/dL (31.0-37.0); MCV 91.9 fL (80.0-100.0); MEAN PLATELET VOLUME 10.8 fL (7.4-10.4); NEUTROPHILS 86.1 % (40-80); PLATELET COUNT 296 10x3/uL (130-400); RBC 3.35 10x6/uL (4.20-6.10); RDW 13.8 % (11.5-14.5); WBC 15.1 10x3/uL (4.8-10.8)
[2018-10-21 05:00] LABS: CALC OSMOLALITY 266 mosm/kg (275-300); CALCIUM 7.4 mg/dL (8.5-10.1); CARBON DIOXIDE 21.9 mmol/L (21.0-32.0); CHLORIDE - SERUM 100 mmol/L (98-107); CREATININE - SERUM 0.8 mg/dL (0.6-1.3); POTASSIUM - SERUM 3.6 mmol/L (3.5-5.1); SODIUM 129 mmol/L (136-145); UREA NITROGEN 18 mg/dL (7-18); eGFR NON AFRICAN AMERICAN > 90 mL/min (90-120)
[2018-10-21 05:18] LABS: GLUCOSE 199 mg/dL (74-106)
--- NOTE | 2018-10-21 06:59 | NUR ---
NON RESPONSIVE TO STIMULATION. RANDOMLY OPENS EYES. DOES NOT ALWAY OPEN WITH STIMULATION. MOVES RIGHT FOOT WHEN BOTTOM OF FOOT STROKED. MOVES LEFT LEG AND FOOT WHEN BOTTOM OF FOOT STROKED. LANG CATH PATENT. 1/2NS INFUSING RIGHT HAND. MONITOR SR. OF INFUSING WITH GLUCERNA 1.0 AT 65 ML HOUR. FLUSH 200 ML Q 2 HOURS. HEAD OF BED ELEVATED 30 DEGREES. REPOSITIONED
--- NOTE | 2018-10-21 08:00 | NUR ---
DR. SONG HERE. REVIEWED TERMINAL EXTUBATION PROCEDURE.
--- NOTE | 2018-10-21 09:00 | NUR ---
REPOSITIONED NO CHANGE IN NEURO STATUS
--- NOTE | 2018-10-21 09:41 | NUR ---
IS HERE MORPHINE GIVEN. EMOTIONAL SUPPORT GIVEN TO FAMILY. RESP THERAPY NOTIFIED. ALLOWING FAMILY TIME WITH PATIENT.
--- NOTE | 2018-10-21 09:43 | NUR ---
TUBE FEEDING TURNED OFF
--- NOTE | 2018-10-21 10:00 | NUR ---
FAMILY HERE, PATIENT SAFETY COORDINATOR IS HERE. IS READY FOR TERMINAL EXTUBATION. RESP. THERAPY EXTUBATED PATIENT. PATIENT RESP LOUD AND LABORED. ADDITIONAL MORPHINE 10 MG IV GIVEN ORDERED BY DR. SONG. ATIVAN 2 MG IV GIVEN.
--- NOTE | 2018-10-21 10:30 | NUR ---
ATROPINE GTT GIVEN FOR LOUD LABORED RESP. SUCTION MOUTH AND BACK OF THROAT. PATIENT BITTING ON HIS TONGUE. PUSHED TONGUE BACK PASS HIS TEETH. RESP STILL LOUD. FAMILY AT BEDSIDE
--- NOTE | 2018-10-21 11:25 | NUR ---
ADDITIONAL MORPHINE AND ATIVAN GIVEN FOR LABORED LOUD RESP. FAMILY GOING HOME. WILL CALL IF PATIENT STARTS DECLINING.
--- NOTE | 2018-10-21 12:49 | NUR ---
RESP STILL LOUD RESP RATE 12 USING ABD MUSCLES TO BREATH.
--- NOTE | 2018-10-21 14:10 | NUR ---
DR. BRANDT HERE ORDERS FOR HOSPICE RECEIVED. STATES HE WILL CALL FAMILY AND TALK WITH THEM
--- NOTE | 2018-10-21 15:28 | NUR ---
FAMILY HERE. DISCUSS HOSPICE WITH . SHE IS AGREEABLE TO HOSPICE HERE GIP.
--- NOTE | 2018-10-21 15:28 | NUR ---
RESP STILL ABD BREATHING. FACE WASHED. RESPOSITIONED. MORPHINE AND ATIVAN GIVEN
--- NOTE | 2018-10-21 16:30 | NUR ---
AND FAMILY HERE WAITING ON HOSPICE. NO CHANGE IN PATIENT
--- NOTE | 2018-10-21 17:35 | MORECARE ---
CASE MANAGEMENT DISCHARGE SUMMARY PATIENT: DAYTON METZGER UNIT: [id number] ADM DATE: 10/08/18 AGE: 73 : 47 SEX: M ROOM/BED: D.2312 AUTHOR: SHAKEEL SAUCEDA PHYSICIAN: REFERRING PHYSICIAN: FRANCIE MEDINA MD DATE OF SERVICE: 10/21/18 Discharge Plan Patient Name: DAYTON METZGER Facility: [facility]:[place] : 1945 Planned Disposition: Anticipated Discharge Date: Discharge Date: Expected LOS: Initial Reviewer: [email or web address] Initial Review Date: 10/08/2018 Generated: 10/21/18 6:35 pm Comments DCP- Discharge Planning Updated by [id number]: Ladi Harden on 10/21/18 4:[address] Patient was terminally extubated today. [facility] consulted for admit GIP. [place] nurse to meet with family and evaluate this evening. Family at bedside. CM will continue to follow and assist as needed with discharge planning / needs. DCP- Discharge Planning Updated by [email or web address]: Ladi Harden on 10/20/18 6:[address] Mars met with patient's this am and decided on Hospice instead of LTACH. Plan to potentially terminally extubate on Friday with Hospice. CM called and notified Terrence with [facility] in change plans. CM will continue to follow and assist as needed with discharge planning / needs. DCP- Discharge Planning Updated by [id number]: Ladi Harden on 10/19/18 6:[address] Terrence from [facility] called this am and came to evaluate patient today. Dr. Tubbs will continue to follow patient in LTACH @ [facility] in [place]. Terrence called back this evening and stated they can accept patient in am. Terrence requested CD of all images and updated MAR in am. CM relayed information to nursing and asked to make sure patient's is notified that patient will discharge tomorrow. Patient's has requested to speak with Dr. Mars prior to patient going to LTACH. Nursing is paging Dr. Mars for spouse. CM will continue to follow and assist as needed with discharge planning / needs. DCP- Discharge Planning Updated by [email or web address]: Jazmyn Adam on 10/16/18 10:[address] Patient Name: DAYTON METZGER Admission Status: ER Accout number: [id number] Admission Date: 10-08-2018 : 1945 Admission Diagnosis:TRAUM SUBRAC HEM W/O LOSS OF CONSCIOUSNESS, INIT Attending: FRANCIE MEDINA Current LOS: 8 Anticipated DC Date: Planned Disposition: Primary Insurance: MEDICARE A & B Discharge Planning Comments: PATIENT IS INTUBATED AND IS IN ROOM. I SPOKE TO HER ABOUT DC PLANNING/NEEDS. SHE SAID THE DOCTOR STATED HE WILL BE IN HERE ANOTHER WEEK. ANTICIPATING LTACH NEED. CM WILL CONTACT TERRENCE [facility]. Compound Worker: Jazmyn Adam DCP- Discharge Planning Updated by [id number]: Jazmyn Adam on 10/12/18 3:[address] Patient Name: DAYTON METZGER Admission Status: ER Accout number: [id number] Admission Date: 10-08-2018 : 1945 Admission Diagnosis:TRAUM SUBRAC HEM W/O LOSS OF CONSCIOUSNESS, INIT Attending: FRANCIE MEDINA Current LOS: 4 Anticipated DC Date: Planned Disposition: Primary Insurance: MEDICARE A & B Discharge Planning Comments: PATIENT IS INTUBATED AT THIS TIME, NO FAMILY HERE. RN STATES HE FELL AT HOME AND HAS A SUBDURAL HEMATOMA. STATES HERE EARLIER. I WILL TRY TO CATCH HER NEXT TIME SHE IS HERE. CM TO FOLLOW AND ASSIST NEEDED. Compound Worker: Jazmyn Adam DCP- Discharge Planning Updated by [email or web address]: Ladi Harden on 10/09/18 4:[address] CM attempted to visit with patient regarding discharge planning/ needs. Patient currently on vent no family available. CM will continue to follow and assist as needed with discharge planning / needs DCPIA - Discharge Planning Initial Assessment Updated by [email or web address]: Jazmyn Kia on 10/12/18 4:04 pm * Is the patient Alert and Oriented? No * PCP KARLY * Preadmission Environment Home Alone * ADLs Independent * List name and contact numbers for known caregivers / representatives who currently or will assist patient after discharge: QASIM, SPOUSE, Last DP export: 10/20/18 6:55 p Patient Name: DAYTON METZGER Page [id number] at 1735 All edits/amendments must be made on the electronic document DICTATION DATE: 10/21/181734 TERRITORY MANAGER: LEAH 10/21/181734 RPT#: [id number] DC DATE: STATUS: ADM IN [facility] [address] [place] [address] END OF REPORT
--- NOTE | 2018-10-21 18:00 | NUR ---
HOSPICE HERE. CALLED. VISITORS HERE UPDATE GIVEN. NO CHANGE INPATIENT LANG CATH PATENT. IV RIGHT HAND INFUSING WITH 1/2NS AT 10 ML HOUR. PATIENT SWOLLEN IN ALL EXTREMITIES. LEFT HAND SALINE LOCK. RESP ABD BREATHING. GASPING TYPE RESP.
--- NOTE | 2018-10-22 11:09 | MORECARE ---
CASE MANAGEMENT DISCHARGE SUMMARY PATIENT: DAYTON METZGER UNIT: [id number] ADM DATE: 10/08/18 AGE: 73 : 47 SEX: M ROOM/BED: D.2312 AUTHOR: SHAKEEL SAUCEDA PHYSICIAN: REFERRING PHYSICIAN: FRANCIE MEDINA MD DATE OF SERVICE: 10/22/18 Discharge Plan Patient Name: DAYTON METZGER Facility: [facility]:[place] : 1945 Planned Disposition: Anticipated Discharge Date: Discharge Date: 10/21/2018 Expected LOS: Initial Reviewer: [email or web address] Initial Review Date: 10/08/2018 Generated: 10/22/18 12:08 pm DCP- Discharge Planning Updated by [email or web address]: Ladi Harden on 10/21/18 4:[address] Patient was terminally extubated today. [facility] consulted for admit GIP. [place] nurse to meet with family and evaluate this evening. Family at bedside. CM will continue to follow and assist as needed with discharge planning / needs. DCP- Discharge Planning Updated by [email or web address]: Ladi Harden on 10/20/18 6:[address] Mars met with patient's this am and decided on Hospice instead of LTACH. Plan to potentially terminally extubate on Friday with Hospice. CM called and notified Terrence with [facility] in change plans. CM will continue to follow and assist as needed with discharge planning / needs. DCP- Discharge Planning Updated by [id number]: Ladi Harden on 10/19/18 6:[address] Terrence from [facility] called this am and came to evaluate patient today. Dr. Tubbs will continue to follow patient in LTACH @ [facility] in [place]. Terrence called back this evening and stated they can accept patient in am. Terrence requested CD of all images and updated MAR in am. CM relayed information to nursing and asked to make sure patient's is notified that patient will discharge tomorrow. Patient's has requested to speak with Dr. Mars prior to patient going to LTACH. Nursing is paging Dr. Mars for spouse. CM will continue to follow and assist as needed with discharge planning / needs. DCP- Discharge Planning Updated by [id number]: Jazmyn Adam on 10/16/18 10:[address] Patient Name: DAYTON METZGER Admission Status: ER Accout number: [id number] Admission Date: 10-08-2018 : 1945 Admission Diagnosis:TRAUM SUBRAC HEM W/O LOSS OF CONSCIOUSNESS, INIT Attending: FRANCIE MEDINA Current LOS: 8 Anticipated DC Date: Planned Disposition: Primary Insurance: MEDICARE A & B Discharge Planning Comments: PATIENT IS INTUBATED AND IS IN ROOM. I SPOKE TO HER ABOUT DC PLANNING/NEEDS. SHE SAID THE DOCTOR STATED HE WILL BE IN HERE ANOTHER WEEK. ANTICIPATING LTACH NEED. CM WILL CONTACT TERRENCE [facility]. Loss Prevention Associate: Jazmyn Adam DCP- Discharge Planning Updated by [id number]: Jazmyn Kia on 10/12/18 3:[address] Patient Name: DAYTON METZGER Admission Status: ER Accout number: [id number] Admission Date: 10-08-2018 : 1945 Admission Diagnosis:TRAUM SUBRAC HEM W/O LOSS OF CONSCIOUSNESS, INIT Attending: FRANCIE MEDINA Current LOS: 4 Anticipated DC Date: Planned Disposition: Primary Insurance: MEDICARE A & B Discharge Planning Comments: PATIENT IS INTUBATED AT THIS TIME, NO FAMILY HERE. RN STATES HE FELL AT HOME AND HAS A SUBDURAL HEMATOMA. STATES HERE EARLIER. I WILL TRY TO CATCH HER NEXT TIME SHE IS HERE. CM TO FOLLOW AND ASSIST NEEDED. Loss Prevention Associate: Jazmyn Adam DCP- Discharge Planning Updated by [email or web address]: Ladi Harden on 10/09/18 4:[address] CM attempted to visit with patient regarding discharge planning/ needs. Patient currently on vent no family available. CM will continue to follow and assist as needed with discharge planning / needs DCPIA - Discharge Planning Initial Assessment Updated by [id number]: Jazmyn Adam on 10/12/18 4:04 pm * Is the patient Alert and Oriented? No * PCP KARLY * Preadmission Environment Home Alone * ADLs Independent * List name and contact numbers for known caregivers / representatives who currently or will assist patient after discharge: QASIM, SPOUSE, Last DP export: 10/21/18 4:35 p Patient Name: DAYTON METZGER Page 13623 at 1109 All edits/amendments must be made on the electronic document DICTATION DATE: 10/22/181107 MANAGER BRAND: LEAH 10/22/181107 RPT#: [id number] DC DATE:10/21/18 STATUS: DIS IN [facility] [address] [facility] [place] [address] END OF REPORT
== END 2018-10-21 19:58 | disposition hospice, inpatient (51) | DRG 85 ==
LOC: D.ER 20:32 → D.MS 10-08 00:45 → D.ICU 10-08 00:45
PROVIDERS: Family Medicine; Internal Medicine Nephrology; Internal Medicine Pulmonary Disease; Neurological Surgery; ADMIT Family Medicine; ATTEND Family Medicine
PROC: 5A1955Z Respiratory Ventilation, Greater than 96 Consecutive Hours (ICD-10-PCS; principal; 2018-10-08)
PROC: 0BH17EZ Insertion of Endotracheal Airway into Trachea, Via Natural or Artificial Opening (ICD-10-PCS; 2018-10-08)
PROC: 0B9J7ZX Drainage of Left Lower Lung Lobe, Via Natural or Artificial Opening, Diagnostic (ICD-10-PCS; 2018-10-12)
DX: S06.6X0A Traumatic subarachnoid hemorrhage without loss of consciousness, initial encounter (principal); J96.00 Acute respiratory failure, unspecified whether with hypoxia or hypercapnia; J69.0 Pneumonitis due to inhalation of food and vomit; G93.6 Cerebral edema; N17.9 Acute kidney failure, unspecified; W10.9XXA Fall (on) (from) unspecified stairs and steps, initial encounter; S42.031A Displaced fracture of lateral end of right clavicle, initial encounter for closed fracture; S06.5X0A Traumatic subdural hemorrhage without loss of consciousness, initial encounter; F10.129 Alcohol abuse with intoxication, unspecified; E11.21 Type 2 diabetes mellitus with diabetic nephropathy; D64.9 Anemia, unspecified; E78.5 Hyperlipidemia, unspecified; I10 Essential (primary) hypertension; M19.90 Unspecified osteoarthritis, unspecified site; G89.29 Other chronic pain; F32.9 Major depressive disorder, single episode, unspecified; Z66 Do not resuscitate

== ENCOUNTER 2018-10-21 20:25 | Inpatient (IN) | payer MEDICARE, OTHER ==
[~2018-10-21] VITALS: Ht 180.3 cm; Wt 126.6 kg
[~2018-10-21 20:25] MED LIST changes: +ALEVE220 MG PO
[2018-10-21 23:06] VITALS: BP 109/70; BMI 39.0
[2018-10-22 05:51] VITALS: BP 109/80
--- NOTE | 2018-10-22 07:30 | NUR ---
Upon entering the room the patient is breathing heavily. He is edematous throughout his body. His lungs are congested. Did attempt suctioning him. The suctioning did not alleviate his difficulty in breathing.
[2018-10-22 10:09] VITALS: BMI 38.9
--- NOTE | 2018-10-22 10:16 | NUR ---
Spouse at the bedside. Patient's breathing is getting slower. Patient requests that he have something for comfort. Did provide Ativan IVP, see GENOVEVA, suctioned mouth, provided atropine drops. Cleaned mouth with toothette swabs.
--- NOTE | 2018-10-22 10:46 | MORECARE ---
CASE MANAGEMENT DISCHARGE SUMMARY PATIENT: DAYTON METZGER UNIT: [id number] ADM DATE: 10/21/18 AGE: 73 : 47 SEX: M ROOM/BED: D.1208 AUTHOR: SHAKEEL SAUCEDA PHYSICIAN: REFERRING PHYSICIAN: RIK BRADLEY MD DATE OF SERVICE: 10/22/18 Discharge Plan Patient Name: DAYTON METZGER [facility]:[place] : 1945 Planned Disposition: Anticipated Discharge Date: 10/22/18 Discharge Date: Expected LOS: 1 Initial Reviewer: [email or web address] Initial Review Date: 10/21/2018 Generated: 10/22/18 11:46 am Comments DCP- Discharge Planning Updated by [email or web address]: Jaki Yepez on 10/22/18 9:[address] THE PATIENT WAS ADMITTED TO [facility] 10/21/18. HIS WAS AT THE BEDSIDE THIS AM. CM AWAIT [facility] AND [facility]IST TO PRONOUNCEMENT. Patient Name: DAYTON METZGER Page 43829 at 1046 All edits/amendments must be made on the electronic document DICTATION DATE: 10/22/18 1046 SCIENTIST: LEAH 10/22/18 1046 RPT#: [id number] DC DATE: STATUS: ADM IN [facility] [address] [place] [address] END OF REPORT
--- NOTE | 2018-10-22 11:36 | NUR ---
Hospice nurse here and pronounced at this time.
--- NOTE | 2018-10-22 12:18 | MORECARE ---
CASE MANAGEMENT DISCHARGE SUMMARY PATIENT: DAYTON METZGER UNIT: [id number] ADM DATE: 10/21/18 AGE: 73 : 47 SEX: M ROOM/BED: D.1208 AUTHOR: SHAKEEL SAUCEDA PHYSICIAN: REFERRING PHYSICIAN: RIK BRADLEY MD DATE OF SERVICE: 10/22/18 Discharge Plan Patient Name: DAYTON METZGER [facility] : 1945 Planned Disposition: Anticipated Discharge Date: 10/22/18 Discharge Date: Expected LOS: 1 Initial Reviewer: [email or web address] Initial Review Date: 10/21/2018 Generated: 10/22/18 1:18 pm Comments DCP- Discharge Planning Updated by [email or web address]: Jaki Yepez on 10/22/18 9:[address] THE PATIENT WAS ADMITTED TO [facility] 10/21/18. HIS WAS AT THE BEDSIDE THIS AM. CM AWAIT [facility] AND MD VIST TO PRONOUNCEMENT. Last DP export: 10/22/18 9:46 a Patient Name: DAYTON METZGER Page 95820 at 1218 All edits/amendments must be made on the electronic document DICTATION DATE: 10/22/181217 CORRECTIONAL OFFICER CHIEF: LEAH 10/22/18 1218 RPT#: [id number] DC DATE: STATUS: ADM IN [facility] [address] [place] [address] END OF REPORT
--- NOTE | 2018-10-22 13:41 | NUR ---
The home is here and they are taking the patient to the home.
[2018-10-22 16:30] VITALS: Ht 180.3 cm; Wt 126.6 kg
--- NOTE | 2018-10-26 17:20 | NUR ---
Per CMS protocol, restraint report logged into data base.
== END 2018-10-22 13:45 | DRG 951 ==
LOC: D.M3 20:25
PROVIDERS: ADMIT Legal Medicine; ATTEND Legal Medicine
DX: Z51.5 Encounter for palliative care (principal)